=== PATIENT | female | born 1990 | race Caucasian/White ===

== ENCOUNTER 2017-11-28 23:10 | Emergency (ER) | payer OTHER ==
[2017-11-28 23:23] VITALS: BP 127/70
== END 2017-11-29 01:35 ==
LOC: JD.ED 23:10
DX: Z53.21 Procedure and treatment not carried out due to patient leaving prior to being seen by health care provider (principal)

== ENCOUNTER 2018-04-16 11:22 | Emergency (ER) | payer SELFPAY ==
[2018-04-16 11:58] VITALS: BP 134/74
[2018-04-16] MEDS ORDERED: Sodium Chloride 0.9% 10 ML Syringe FLUSH PRN (12:27)
[2018-04-16] MEDS ORDERED: Sodium Chloride 0.9% 1,000 ML IV SCH (12:30)
--- NOTE | 2018-04-16 12:34 | EDM.PDOC ---
ED HPI GENERAL MEDICAL PROBLEM - General Chief Complaint: SUPERVISOR TUBING Problem Stated Complaint: 12 WEEKS PREG AND BLEEDING Time Seen by Provider: 04/16/18 12:02 Source of Information: Reports: Patient, RN Notes Reviewed History Limitations: Reports: No Limitations - History of Present Illness INITIAL COMMENTS - FREE TEXT/NARRATIVE: Patient is a 28 year old female, , who presents to the ED for the evaluation of vaginal bleeding with . She states that when she went to the bathroom this AM, that she noticed some bright red, stringy blood. She is 12 weeks , a patient of Dr. Alexander and has had an ultrasound that showed a single intrauterine . She does state that she has had horrible morning sickness with this that has required IV fluid infusions and also notes that she has had a previous miscarriage. She was worried this morning when she saw the blood. She also states that she is having some mild lower abdominal cramping, but does states that she has not passed any blood clots. She also states that she has been quite constipated and thinks that maybe the cramping is due to that. She denies any dysuria, but does note increased urinary frequency Pelvic Pain Score (Numeric/FACES): 7 - Related Data Allergies Allergy/AdvReac Type Severity Reaction Status Date / Time penicillin Allergy Cannot Verified 04/16/18 11:58 Remember sulfabenzamide Allergy Cannot Verified 04/16/18 11:58 Remember Home Meds: Home Meds Ondansetron [Zofran ODT] 4 mg PO Q6H PRN 04/16/18 [History] PNV No.115/Iron Fumarate/FA [ 19 Chewable Tablet] 1 tab PO DAILY [History] Past Medical History HEENT History: Reports: None Cardiovascular History: Reports: Other (See Below) Other Cardiovascular History: heart palpitations Respiratory History: Reports: Asthma Gastrointestinal History: Reports: None Genitourinary History: Reports: None SUPERVISOR TUBING History: Reports: Other (See Below) Other SUPERVISOR TUBING History: low estrogen levels per pt report Musculoskeletal History: Reports: None Neurological History: Reports: None Psychiatric History: Reports: ADHD Endocrine/Metabolic History: Reports: None Hematologic History: Reports: None Immunologic History: Reports: None Oncologic (Cancer) History: Reports: None Dermatologic History: Reports: None - Infectious Disease History Infectious Disease History: Reports: Chicken Pox - Past Surgical History Head Surgeries/Procedures: Reports: None HEENT Surgical History: Reports: Myringotomy w Tube(s), Tonsillectomy Cardiovascular Surgical History: Reports: None Respiratory Surgical History: Reports: None GI Surgical History: Reports: None Female Surgical History: Reports: None, Breast Implant Endocrine Surgical History: Reports: None Neurological Surgical History: Reports: None Musculoskeletal Surgical History: Reports: None Oncologic Surgical History: Reports: None Dermatological Surgical History: Reports: Plastic Surgical Reconstruction/Repair Social & Family History - Family History Family Medical History: Noncontributory - Tobacco Use Smoking Status *Q: Never Smoker - Caffeine Use Caffeine Use: Reports: None - Recreational Drug Use Recreational Drug Use: No ED ROS GENERAL - Review of Systems Review Of Systems: See Below Constitutional: Reports: No Symptoms HEENT: Reports: No Symptoms Respiratory: Reports: No Symptoms Cardiovascular: Reports: No Symptoms Endocrine: Reports: No Symptoms GI/Abdominal: Reports: No Symptoms : Reports: Frequency, Other (bleeding with urination this AM) Musculoskeletal: Reports: No Symptoms Skin: Reports: No Symptoms Neurological: Reports: No Symptoms Psychiatric: Reports: No Symptoms Hematologic/Lymphatic: Reports: No Symptoms Immunologic: Reports: No Symptoms ED EXAM - Physical Exam Exam: See Below Exam Limited By: No Limitations General Appearance: Alert, WD/WN, No Apparent Distress Eye Exam: Bilateral Eye: Normal Inspection, PERRL Ears: Normal External Exam Nose: Normal Inspection Throat/Mouth: Normal Inspection Respiratory/Chest: No Respiratory Distress, Lungs Clear, Normal Breath Sounds, No Accessory Muscle Use, Chest Non-Tender Cardiovascular: Normal Peripheral Pulses, Regular Rate, Rhythm, No Murmur GI/Abdominal Exam: Normal Bowel Sounds, Soft, Tender (LLQ and suprapubic) (Female) Exam: Other (deferred) Heart Tones: Not [facility] Movement: Not Appreciated Extremities: Normal Inspection, Normal Capillary Refill Neurological: Alert, Oriented, Normal Cognition, No Motor/Sensory Deficits Psychiatric: Normal Affect, Normal Mood Skin Exam: Warm, Dry, Intact, Normal Color, No Rash Course - Vital Signs Last Recorded V/S: Last Vital Signs Temp 99.5 F 04/16/18 11:53 Pulse 83 04/16/18 11:53 Resp 16 04/16/18 11:53 BP 134/74 04/16/18 11:53 Pulse Ox 100 01/26/19 11:53 - Orders/Labs/Meds Orders: Active Orders 24 hr Category Date Time Status Peripheral IV Care [RC] . DIRECTED Care 04/16/18 12:27 Ordered Sodium Chloride 0.9% [Normal Saline] 1,000 ml Med 04/16/18 12:30 Ordered IV ASDIRECTED Sodium Chloride 0.9% [Saline Flush] Med 04/16/18 12:27 Ordered 10 ml FLUSH ASDIRECTED PRN Peripheral IV Insertion Adult [OM.PC] Routine Oth 04/16/18 12:27 Ordered Medication Orders Sodium Chloride (Normal Saline) 1,000 mls @ 999 mls/hr IV ASDIRECTED TEVIN Last Admin: 04/16/18 13:03 Dose: 999 mls/hr Sodium Chloride (Saline Flush) 10 ml FLUSH ASDIRECTED PRN PRN Reason: Keep Vein Open Last Admin: 04/16/18 13:04 Dose: 10 ml Labs: Laboratory Tests 04/16/18 04/16/18 04/16/18 Range/Units 12:05 12:23 12:23 WBC 9.88 (3.98-10.04) K/mm3 RBC 4.38 (3.98-5.22) M/mm3 Hgb 12.6 (11.2-15.7) gm/L Hct 37.6 (34.1-44.9) % MCV 85.8 (79.4-94.8) fl MCH 28.8 (25.6-32.2) pg MCHC 33.5 (32.2-35.5) g/dl RDW Std Deviation 41.7 (36.4-46.3) fL Plt Count 289 (182-369) K/mm3 MPV 9.4 (9.4-12.3) fl Neutrophils % (Manual) 79 H (40-60) % Band Neutrophils % 0 (0-10) % Lymphocytes % (Manual) 18 L (20-40) % Atypical Lymphs % 0 % Monocytes % (Manual) 3 (2-10) % Eosinophils % (Manual) 0 L (0.7-5.8) % Basophils % (Manual) 0 L (0.1-1.2) Platelet Estimate Adequate RBC Morph Comment Normal Sodium (136-145) mEq/L Potassium (3.5-5.1) mEq/L Chloride (98-107) mEq/L Carbon Dioxide (21-32) mEq/L Anion Gap (5-15) BUN (7-18) mg/dL Creatinine (0.55-1.02) mg/dL Est Cr Clr Drug Dosing mL/min Estimated GFR (MDRD) (>60) mL/min BUN/Creatinine Ratio (14-18) Glucose (74-106) mg/dL Calcium (8.5-10.1) mg/dL Total Bilirubin (0.2-1.0) mg/dL AST (15-37) U/L ALT (14-59) U/L Alkaline Phosphatase (46-116) U/L Total Protein (6.4-8.2) g/dl Albumin (3.4-5.0) g/dl Globulin gm/dL Albumin/Globulin Ratio (1-2) HCG, Quant 11335.0 mIU/mL Urine Color Light yellow (Yellow) Urine Appearance Slt cloudy H (Clear) Urine pH 7.0 (5.0-8.0) Ur Specific Omar 1.015 (1.005-1.030) Urine Protein Negative (Negative) Urine Glucose (UA) Negative (Negative) Urine Ketones Negative (Negative) Urine Occult Blood Trace-intact H (Negative) Urine Nitrite Negative (Negative) Urine Bilirubin Negative (Negative) Urine Urobilinogen 0.2 (0.2-1.0) Ur Leukocyte Esterase 2+ H (Negative) Urine RBC 0-5 (0-5) /hpf Urine WBC 5-10 H (0-5) /hpf Ur Epithelial Cells 5-10 H (0-5) /hpf Urine Bacteria Many H (FEW) /hpf Urine Mucus Few (FEW) /hpf 04/16/18 Range/Units 12:23 WBC (3.98-10.04) K/mm3 RBC (3.98-5.22) M/mm3 Hgb (11.2-15.7) gm/L Hct (34.1-44.9) % MCV (79.4-94.8) fl MCH (25.6-32.2) pg MCHC (32.2-35.5) g/dl RDW Std Deviation (36.4-46.3) fL Plt Count (182-369) K/mm3 MPV (9.4-12.3) fl Neutrophils % (Manual) (40-60) % Band Neutrophils % (0-10) % Lymphocytes % (Manual) (20-40) % Atypical Lymphs % % Monocytes % (Manual) (2-10) % Eosinophils % (Manual) (0.7-5.8) % Basophils % (Manual) (0.1-1.2) Platelet Estimate RBC Morph Comment Sodium 138 (136-145) mEq/L Potassium 4.1 (3.5-5.1) mEq/L Chloride 101 (98-107) mEq/L Carbon Dioxide 26 (21-32) mEq/L Anion Gap 15.1 H (5-15) BUN 9 (7-18) mg/dL Creatinine 0.6 (0.55-1.02) mg/dL Est Cr Clr Drug Dosing 122.69 mL/min Estimated GFR (MDRD) > 60 (>60) mL/min BUN/Creatinine Ratio 15.0 (14-18) Glucose 91 (74-106) mg/dL Calcium 9.6 (8.5-10.1) mg/dL Total Bilirubin 0.2 (0.2-1.0) mg/dL AST 17 (15-37) U/L ALT 19 (14-59) U/L Alkaline Phosphatase 45 L (46-116) U/L Total Protein 7.3 (6.4-8.2) g/dl Albumin 3.5 (3.4-5.0) g/dl Globulin 3.8 gm/dL Albumin/Globulin Ratio 0.9 L (1-2) HCG, Quant mIU/mL Urine Color (Yellow) Urine Appearance (Clear) Urine pH (5.0-8.0) Ur Specific Omar (1.005-1.030) Urine Protein (Negative) Urine Glucose (UA) (Negative) Urine Ketones (Negative) Urine Occult Blood (Negative) Urine Nitrite (Negative) Urine Bilirubin (Negative) Urine Urobilinogen (0.2-1.0) Ur Leukocyte Esterase (Negative) Urine RBC (0-5) /hpf Urine WBC (0-5) /hpf Ur Epithelial Cells (0-5) /hpf Urine Bacteria (FEW) /hpf Urine Mucus (FEW) /hpf Meds: Medications Generic Name Dose Route Start Last Admin Trade Name Freq PRN Reason Stop Dose Admin Sodium Chloride 1,000 mls @ 999 mls/hr 04/16/18 12:30 04/16/18 13:03 Normal Saline IV 999 mls/hr ASDIRECTED TEVIN Administration Sodium Chloride 10 ml 04/16/18 12:27 04/16/18 13:04 Saline Flush FLUSH 10 ml ASDIRECTED PRN Administration Keep Vein Open Discontinued Medications Generic Name Dose Route Start Last Admin Trade Name Freq PRN Reason Stop Dose Admin Ondansetron HCl 4 mg 04/16/18 14:43 04/16/18 14:49 Zofran IVPUSH 04/16/18 14:44 4 mg ONETIME ONE Administration - Radiology Interpretation Free Text/Narrative:: First trimester obstetrical ultrasound: Multiple real-time images were obtained transabdominally. Comparison: No previous obstetrical ultrasound for current is available. Dates: Current ultrasound: [facility] 11/01/18, gestational age 11 weeks 4 days Single intrauterine gestation is seen. Amniotic fluid time is normal. Embryo is identified. No subchorionic hemorrhage is seen. Maternal ovaries appear within normal limits. Measurements: [place]-rump length: 4.77 cm - 11 weeks 4 days Heart rate: 176 BPM Impression: 1. Single intrauterine gestation. Dates as noted above. 2. No complicating process is seen by ultrasound at this time. - Re-Assessments/Exams Free Text/Narrative Re-Assessment/Exam: 04/16/18 12:38 Pt presents to the ED for the evaluation of bleeding with urination this AM. I have ordered an IV bolus of NS due to her morning sickness, CBC, CMP, HCG quant , UA, and possible transvaginal US if the UA is negative. 04/16/18 13:38 UA is not entirely impressive for any infection, will go ahead with the US at this time. Her labs did in fact show that she was dry, and her HCG quant is at an appropriate level. 04/16/18 14:55 Pt was feeling nauseated, did order 4mg IV zofran, and her bag of fluids are complete. US shows a single intrauterine fetus with heart rate of 176bpm. Pt was reassured at this news. She will be discharged home and told to take it easy over the course of the weekend. Departure - Departure Time of Disposition: 14:57 Disposition: Home, Self-Care 01 Clinical Impression: Bleeding in early - Discharge Information *PRESCRIPTION DRUG MONITORING PROGRAM REVIEWED*: No *COPY OF PRESCRIPTION DRUG MONITORING REPORT IN PATIENT LIZ: No Referrals: Kerline Taylor MD [Primary Care Provider] - Forms: ED Department Discharge Additional Instructions: You have been evaluated in the ED for bleeding with . Your labs show that your is progressing well. Your US showed that your baby is alive and well. Please take it easy this weekend, get as much rest as possible. Follow up with your OB this next week if you are still having increased urinary frequency or painful urination, as your UA did not demonstrate any active infection today. Please return to the ED if your symptoms should change or worsen. - My Orders Last 24 Hours: My Active Orders 04/16/18 12:27 Peripheral IV Care [RC] . DIRECTED Sodium Chloride 0.9% [Saline Flush] 10 ml FLUSH ASDIRECTED PRN Peripheral IV Insertion Adult [OM.PC] Routine 04/16/18 12:30 Sodium Chloride 0.9% [Normal Saline] 1,000 ml IV ASDIRECTED - Assessment/Plan Last 24 Hours: My Active Orders 04/16/18 12:27 Peripheral IV Care [RC] . DIRECTED Sodium Chloride 0.9% [Saline Flush] 10 ml FLUSH ASDIRECTED PRN Peripheral IV Insertion Adult [OM.PC] Routine 04/16/18 12:30 Sodium Chloride 0.9% [Normal Saline] 1,000 ml IV ASDIRECTED
--- NOTE | 2018-04-16 14:20 | US ---
First trimester obstetrical ultrasound: Multiple real-time images were obtained transabdominally. Comparison: No previous obstetrical ultrasound for current is available. Dates: Current ultrasound: [facility] 11/01/18, gestational age 11 weeks 4 days Single intrauterine gestation is seen. Amniotic fluid time is normal. Embryo is identified. No subchorionic hemorrhage is seen. Maternal ovaries appear within normal limits. Measurements: [place]-rump length: 4.77 cm - 11 weeks 4 days Heart rate: 176 BPM Impression: 1. Single intrauterine gestation. Dates as noted above. 2. No complicating process is seen by ultrasound at this time. Diagnostic code #1
[2018-04-16] MEDS ORDERED: Ondansetron 4 MG/2 ML SDV IVPUSH ONE (14:43)
== END 2018-04-16 15:12 | disposition home or self-care (01) ==
LOC: JD.ED 11:22
DX: O20.9 Hemorrhage in early pregnancy, unspecified (principal); Z96.22 Myringotomy tube(s) status; Z98.890 Other specified postprocedural states; Z88.0 Allergy status to penicillin; Z88.2 Allergy status to sulfonamides; Z3A.11 11 weeks gestation of pregnancy
CPT/HCPCS: 36415; 76801; 80053; 81001; 84702; 85007; 85027; 96361; 96374; 99284; J2405; J7040; 99283

== ENCOUNTER 2018-07-05 17:48 | Emergency (ER) | payer OTHER ==
[2018-07-05 18:21] VITALS: BP 140/94
[2018-07-05] MEDS ORDERED: Sodium Chloride 0.9% 10 ML Syringe FLUSH PRN (18:33)
[2018-07-05] MEDS ORDERED: Sodium Chloride 0.9% 1,000 ML IV SCH (18:45)
--- NOTE | 2018-07-05 19:03 | EDM.PDOC ---
ED HPI GENERAL MEDICAL PROBLEM - General Chief Complaint: Gastrointestinal Problem Stated Complaint: DIARRHEA Time Seen by Provider: 07/05/18 18:10 Source of Information: Reports: Patient, RN Notes Reviewed History Limitations: Reports: No Limitations - History of Present Illness INITIAL COMMENTS - FREE TEXT/NARRATIVE: Patient is a 28-year-old female who is 24 weeks who presents to the ED for the evaluation of diarrhea. She states that the diarrhea has been present for around 3 days now. She notes that she is seeing some blood with her diarrhea. She states she is able to tolerate oral fluids and foods, however when she eats it just goes straight through her. She notes some right-sided cramps, she did take 2 aspirins for this. She states she has some mild nausea, sweats that coming go in waves. She is not had any lightheadedness or dizziness at this time. She does not note eating any questionable foods, nor did she start any medications or supplements. She did take 1 dose of Imodium on the first day, she states that this did not provide much relief from the diarrhea however. She denies any chest pain/shortness of breath. She further notes feelings of being flush. Right Lower Abdomen Pain Score (Numeric/FACES): 8 - Related Data Allergies Allergy/AdvReac Type Severity Reaction Status Date / Time penicillin Allergy Cannot Verified 07/05/18 18:21 Remember sulfabenzamide Allergy Cannot Verified 07/05/18 18:21 Remember Home Meds: Home Meds Ondansetron [Zofran ODT] 4 mg PO Q6H PRN 04/16/18 [History] PNV No.115/Iron Fumarate/FA [ 19 Chewable Tablet] 1 tab PO DAILY [History] Past Medical History HEENT History: Reports: None Cardiovascular History: Reports: Other (See Below) Other Cardiovascular History: heart palpitations Respiratory History: Reports: Asthma Gastrointestinal History: Reports: None Genitourinary History: Reports: None MICRO PALEONTOLOGIST History: Reports: , Other (See Below) Other MICRO PALEONTOLOGIST History: low estrogen levels per pt report Musculoskeletal History: Reports: None Neurological History: Reports: None Psychiatric History: Reports: ADHD, Suicidal Ideation Endocrine/Metabolic History: Reports: None Hematologic History: Reports: None Immunologic History: Reports: None Oncologic (Cancer) History: Reports: None Dermatologic History: Reports: None - Infectious Disease History Infectious Disease History: Reports: Chicken Pox - Past Surgical History Head Surgeries/Procedures: Reports: None HEENT Surgical History: Reports: Myringotomy w Tube(s), Tonsillectomy Cardiovascular Surgical History: Reports: None Female Surgical History: Reports: Breast Implant Oncologic Surgical History: Reports: None Dermatological Surgical History: Reports: Plastic Surgical Reconstruction/Repair Social & Family History - Family History Family Medical History: Noncontributory - Tobacco Use Smoking Status *Q: Never Smoker - Caffeine Use Caffeine Use: Reports: None ED ROS GENERAL - Review of Systems Review Of Systems: See Below Constitutional: Denies: Fever, Chills, Weight Loss HEENT: Reports: No Symptoms Respiratory: Reports: No Symptoms Cardiovascular: Reports: No Symptoms Endocrine: Reports: No Symptoms GI/Abdominal: Reports: Abdominal Pain (Right sided flank/quadrant), Diarrhea, Nausea. Denies: Constipation, Vomiting : Reports: No Symptoms Musculoskeletal: Reports: No Symptoms Skin: Reports: No Symptoms Neurological: Reports: No Symptoms Psychiatric: Reports: No Symptoms Hematologic/Lymphatic: Reports: No Symptoms Immunologic: Reports: No Symptoms ED EXAM, GI/ABD - Physical Exam Exam: See Below Exam Limited By: No Limitations General Appearance: Alert, WD/WN, No Apparent Distress Eyes: Bilateral: Normal Appearance Ears: Normal External Exam Nose: Normal Inspection Throat/Mouth: Normal Inspection, Normal Oropharynx, No Airway Compromise Head: Atraumatic, Normocephalic Neck: Normal Inspection Respiratory/Chest: No Respiratory Distress, Lungs Clear, Normal Breath Sounds, No Accessory Muscle Use, Chest Non-Tender Cardiovascular: Normal Peripheral Pulses, Regular Rate, Rhythm, No Murmur GI/Abdominal Exam: Normal Bowel Sounds, Soft, Non-Tender, No Distention, No Mass , Other (Gravid appearing abdomen) Back Exam: Normal Inspection, Full Range of Motion Extremities: Normal Inspection, Normal Capillary Refill Neurological: Alert, Oriented, Normal Cognition, No Motor/Sensory Deficits Psychiatric: Normal Affect, Normal Mood Skin Exam: Warm, Dry, Intact, Normal Color, No Rash Course - Vital Signs Last Recorded V/S: Last Vital Signs Temp 97.8 F 07/05/18 18:18 Pulse 103 H 07/05/18 18:18 Resp 18 07/05/18 18:18 BP 140/94 H 07/05/18 18:18 Pulse Ox 100 07/05/18 18:18 - Orders/Labs/Meds Orders: Active Orders 24 hr Category Date Time Status Peripheral IV Care [RC] . DIRECTED Care 07/05/18 18:34 Active Retroperitoneal Comp [US] Stat Exams 07/05/18 19:52 Taken Peripheral IV Insertion Adult [OM.PC] Routine Oth 07/05/18 18:33 Ordered Labs: Laboratory Tests 07/05/18 07/05/18 07/05/18 Range/Units 18:36 18:47 18:47 WBC 13.51 H (3.98-10.04) K/mm3 RBC 3.80 L (3.98-5.22) M/mm3 Hgb 11.3 (11.2-15.7) gm/L Hct 34.0 L (34.1-44.9) % MCV 89.5 (79.4-94.8) fl MCH 29.7 (25.6-32.2) pg MCHC 33.2 (32.2-35.5) g/dl RDW Std Deviation 46.8 H (36.4-46.3) fL Plt Count 230 (182-369) K/mm3 MPV 10.3 (9.4-12.3) fl Neutrophils % (Manual) 78 H (40-60) % Band Neutrophils % 0 (0-10) % Lymphocytes % (Manual) 17 L (20-40) % Atypical Lymphs % 0 % Monocytes % (Manual) 5 (2-10) % Eosinophils % (Manual) 0 L (0.7-5.8) % Basophils % (Manual) 0 L (0.1-1.2) Platelet Estimate Adequate RBC Morph Comment Normal Sodium 137 (136-145) mEq/L Potassium 3.3 L (3.5-5.1) mEq/L Chloride 104 (98-107) mEq/L Carbon Dioxide 25 (21-32) mEq/L Anion Gap 11.3 (5-15) BUN 8 (7-18) mg/dL Creatinine 0.6 (0.55-1.02) mg/dL Est Cr Clr Drug Dosing 127.85 mL/min Estimated GFR (MDRD) > 60 (>60) mL/min BUN/Creatinine Ratio 13.3 L (14-18) Glucose 76 (74-106) mg/dL Calcium 9.1 (8.5-10.1) mg/dL Total Bilirubin 0.2 (0.2-1.0) mg/dL AST 22 (15-37) U/L ALT 22 (14-59) U/L Alkaline Phosphatase 58 (46-116) U/L C-Reactive Protein (<1.0) mg/dL Total Protein 6.7 (6.4-8.2) g/dl Albumin 3.1 L (3.4-5.0) g/dl Globulin 3.6 gm/dL Albumin/Globulin Ratio 0.9 L (1-2) Urine Color Straw (Yellow) Urine Appearance Clear (Clear) Urine pH 7.0 (5.0-8.0) Ur Specific Glover 1.015 (1.005-1.030) Urine Protein Negative (Negative) Urine Glucose (UA) Negative (Negative) Urine Ketones Negative (Negative) Urine Occult Blood 3+ H (Negative) Urine Nitrite Negative (Negative) Urine Bilirubin Negative (Negative) Urine Urobilinogen 0.2 (0.2-1.0) Ur Leukocyte Esterase Negative (Negative) Urine RBC 30-40 H (0-5) /hpf Urine WBC 0-5 (0-5) /hpf Ur Squamous Epith Cells 0-5 (0-5) /hpf Urine Bacteria Not seen (FEW) /hpf Urine Mucus Not seen (FEW) /hpf 07/05/18 Range/Units 18:47 WBC (3.98-10.04) K/mm3 RBC (3.98-5.22) M/mm3 Hgb (11.2-15.7) gm/L Hct (34.1-44.9) % MCV (79.4-94.8) fl MCH (25.6-32.2) pg MCHC (32.2-35.5) g/dl RDW Std Deviation (36.4-46.3) fL Plt Count (182-369) K/mm3 MPV (9.4-12.3) fl Neutrophils % (Manual) (40-60) % Band Neutrophils % (0-10) % Lymphocytes % (Manual) (20-40) % Atypical Lymphs % % Monocytes % (Manual) (2-10) % Eosinophils % (Manual) (0.7-5.8) % Basophils % (Manual) (0.1-1.2) Platelet Estimate RBC Morph Comment Sodium (136-145) mEq/L Potassium (3.5-5.1) mEq/L Chloride (98-107) mEq/L Carbon Dioxide (21-32) mEq/L Anion Gap (5-15) BUN (7-18) mg/dL Creatinine (0.55-1.02) mg/dL Est Cr Clr Drug Dosing mL/min Estimated GFR (MDRD) (>60) mL/min BUN/Creatinine Ratio (14-18) Glucose (74-106) mg/dL Calcium (8.5-10.1) mg/dL Total Bilirubin (0.2-1.0) mg/dL AST (15-37) U/L ALT (14-59) U/L Alkaline Phosphatase (46-116) U/L C-Reactive Protein < 0.2 (<1.0) mg/dL Total Protein (6.4-8.2) g/dl Albumin (3.4-5.0) g/dl Globulin gm/dL Albumin/Globulin Ratio (1-2) Urine Color (Yellow) Urine Appearance (Clear) Urine pH (5.0-8.0) Ur Specific Glover (1.005-1.030) Urine Protein (Negative) Urine Glucose (UA) (Negative) Urine Ketones (Negative) Urine Occult Blood (Negative) Urine Nitrite (Negative) Urine Bilirubin (Negative) Urine Urobilinogen (0.2-1.0) Ur Leukocyte Esterase (Negative) Urine RBC (0-5) /hpf Urine WBC (0-5) /hpf Ur Squamous Epith Cells (0-5) /hpf Urine Bacteria (FEW) /hpf Urine Mucus (FEW) /hpf Meds: Medications Discontinued Medications Generic Name Dose Route Start Last Admin Trade Name Freq PRN Reason Stop Dose Admin Sodium Chloride 1,000 mls @ 500 mls/hr 07/05/18 18:45 07/05/18 19:03 Normal Saline IV 500 mls/hr ASDIRECTED TEVIN Administration Sodium Chloride 10 ml 07/05/18 18:33 07/05/18 19:03 Saline Flush FLUSH 10 ml ASDIRECTED PRN Administration Keep Vein Open - Re-Assessments/Exams Free Text/Narrative Re-Assessment/Exam: 07/05/18 19:05 Patient presents to the ED for the evaluation of diarrhea. I did order an IV bolus of fluids, CBC, CMP and a UA for further evaluation. I will have her collect a stool sample if she feels the need to go in the ED and send this for culture. 07/05/18 19:53 Patient's labs have returned and demonstrated slightly elevated white count at 13,000 no bands, her UA is remarkable for 3+ occult blood and 40-50 red blood cells. I have ordered a retroperitoneal ultrasound for further evaluation of a possible kidney stone, and have ordered a wet prep for evaluation of possible BV as the patient divulged that she thought there was some foul-smelling discharge. 07/05/18 20:31 Patient's CRP is back and is not elevated at this time, which is less likely consistent with a diagnosis of appendicitis. metallurgical technician is obtaining the retroperitoneal ultrasound at this time. 07/05/18 20:52 The special procedure technologist states that she has some hydronephrosis on the right side, this would be consistent with the possibility of a kidney stone. I will give the patient general recommendations regarding her diarrhea and kidney stone at this time. Departure - Departure Time of Disposition: 20:59 Disposition: Home, Self-Care 01 Condition: Fair Clinical Impression: Diarrhea, Kidney stone - Discharge Information *PRESCRIPTION DRUG MONITORING PROGRAM REVIEWED*: No *COPY OF PRESCRIPTION DRUG MONITORING REPORT IN PATIENT LIZ: No Instructions: Kidney Stones, [id number], Food Choices to Help Relieve Diarrhea, Adult, Diarrhea, Adult, [id number] Referrals: Kerline Taylor MD [Primary Care Provider] - Forms: ED Department Discharge Additional Instructions: You have been evaluated in the ED for diarrhea. It is likely that this is caused from a viral gastroenteritis. Your urinalysis was suspicious for a kidney stone, your ultrasound of your right kidney did demonstrate some hydronephrosis which also is consistent with a kidney stone. Please take 500 mg Tylenol every 6 hours as needed for pain relief. Do not exceed 4000 mg of Tylenol in a 24-hour time span. You have received IV fluid in the ED to help with the dehydration from the diarrhea. Over the next 24-48 hours please try to limit diet to clear liquids or bland diet to alleviate symptoms of nausea/diarrhea. Please return to the ED if your symptoms should change or worsen. - My Orders Last 24 Hours: My Active Orders 07/05/18 18:33 Peripheral IV Insertion Adult [OM.PC] Routine 07/05/18 18:34 Peripheral IV Care [RC] . DIRECTED 07/05/18 19:52 Retroperitoneal Comp [US] Stat - Assessment/Plan Last 24 Hours: My Active Orders 07/05/18 18:33 Peripheral IV Insertion Adult [OM.PC] Routine 07/05/18 18:34 Peripheral IV Care [RC] . DIRECTED 07/05/18 19:52 Retroperitoneal Comp [US] Stat
--- NOTE | 2018-07-06 06:42 | US ---
Renal ultrasound: Multiple real-time images of the kidneys were obtained. Comparison: Prior CT abdomen and pelvis exam of 02/11/18. Right-sided hydronephrosis is seen. Right ureteral jet is seen within the bladder. Left kidney shows no hydronephrosis. Left ureteral jet is seen within the bladder. Resistivity indices are normal within both kidneys. No shadowing calculi are seen. No cortical abnormalities are seen. Measurements: Right kidney length: 11.6 cm Left kidney length: 10.9 cm. Impression: 1. Mild to moderate right-sided hydronephrosis. Right ureteral jet is seen which rules out complete ureteral obstruction. Uncertain how much of the hydronephrosis represents hydronephrosis of or represents other etiology of ureteral obstruction. 2. Renal ultrasound is otherwise unremarkable. Diagnostic code #3 I agree with preliminary report from [facility], finalized on 07/05/18, 10:43 PM Central Time
== END 2018-07-05 21:15 | disposition home or self-care (01) ==
LOC: JD.ED 17:48
DX: O99.89 Other specified diseases and conditions complicating pregnancy, childbirth and the puerperium (principal); R19.7 Diarrhea, unspecified; N13.30 Unspecified hydronephrosis; Z3A.24 24 weeks gestation of pregnancy; Z88.0 Allergy status to penicillin; Z88.2 Allergy status to sulfonamides
CPT/HCPCS: 36415; 76770; 80053; 81001; 85007; 85027; 86140; 87210; 87808; 96360; 96361; 99284; J7040; 99283

== ENCOUNTER 2018-08-20 10:04 | Observation (INO) | payer OTHER ==
[2018-08-20] MEDS ORDERED: Sodium Chloride 0.9% 10 ML Syringe FLUSH PRN (11:33)
[2018-08-20] MEDS ORDERED: Sodium Chloride 0.9% 1,000 ML IV ONE (11:33)
[2018-08-20] MEDS ORDERED: Diphenhydramine/Lidocaine/MagAl/Simethicone 119 ML Bottle PO PRN (11:35)
[2018-08-20] MEDS ORDERED: Lactated Ringers 1,000 ML IV SCH (11:45)
[2018-08-20] MEDS: Ondansetron 4 MG/2 ML SDV IVPUSH PRN ×3 (12:02→21:23)
[2018-08-20] MEDS: HYDROmorphone 0.5 MG/0.5 ML Syringe IVPUSH PRN ×4 (12:13→23:22)
[2018-08-20] MEDS ORDERED: ePHEDrine 50 MG/ML SDV IVPUSH PRN (12:31)
[2018-08-20] MEDS ORDERED: diphenhydrAMINE 50 MG/ML SDV IVPUSH PRN (12:31)
[2018-08-20] MEDS ORDERED: fentaNYL 100 MCG/2 ML SDV EPIDUR PRN (12:31)
[2018-08-20] MEDS ORDERED: Bupivacaine/fentaNYL/NS 100 ML Bag EPIDUR SCH (12:45)
[2018-08-20] MEDS: Acetaminophen/oxyCODONE 325-5 MG Tab PO PRN (13:24)
--- NOTE | 2018-08-20 15:18 | PCM.LDHP ---
L&D History of Present Illness - General Date of Service: 08/20/18 Admit Problem/Dx: Patient Status Order with Admit Dx/Problem 08/20/18 10:37 Patient Status [ADT] Routine Admission Diagnosis/Problem Admission Diagnosis/Problem 08/20/18 15:01 Kassie is a 28-year-old 2 para 0010 white female who is seen in outpatient labor and delivery for complaints of oral ulcers/lesions that are very painful to the degree where she is not able to eat or drink anything for the last 2-4 days. She has had an evaluation in the [facility] department on at which time is felt to be a viral infection and for which she was sent home with conservative therapy such as throat lozenges and over-the- counter oral rinses. She is here today because she feels she is getting dehydrated end of pain is very severe. She is not able to swallow without significant discomfort. Baby has been active and she reports no problems specifically her directly with the . ROTARY ADJUSTER history: Patient is seen relatively early in the on 03/24/2018 at 7-4/7 weeks. Her ARSEN is set at 11/06/2018 based upon ultrasound done on 2018. She's had another ultrasound since that time on 04/16/2018 which essentially correlated with her first ultrasound. Her weight gain has been from 160-169 pounds. Laboratory testing and shows blood to be O+ with negative ice cream. Hemoglobin first visit was 12.5 g/dL. Platelets 272,000. Rubella titer shows immunity. RPR is nonreactive hepatitis B surface antigen and hepatitis C were both nonreactive. Chlamydia and gonorrhea were both negative. She did have some abnormalities on her Pap smear at that time. These are not in her record. Second trimester hemoglobin was 12.7 and platelets are 255,000. Her TSH was 0.85 Michel instrument milliliter at first visit. Group B strep screen has not been done. She has not had her 1 hour GTT at this time yet. Allergies: penicillin and sulfabenzamide Medications: 1. vitamins 2. Albuterol inhaler when necessary 3. Phenergan 25 mg tablets by mouth every 6 hours when necessary for nausea 4. Zofran 8 mg dispersal tablets every 8 hours when necessary for nausea 5. Bactroban 2% ointment topically 3 times per day Past medical history: 1. Anxiety 2. Mood disorder 3. ADHD 4. History of alcohol abuse 5. Miscarriage times 21 January 2016 Past surgical history: 1. Augmentation mammoplasty 2. Tonsillectomy and adenoidectomy at age 14 3. Tympanostomy tube placement left side as a child Family history: Father with type 2 diabetes, anxiety disorder, ADHD, depression , hypertension and mother with history of drug abuse. Sr. with history of anemia. Brother with history of Crohn's disease. Brother with ADHD. Maternal grandmother with endometriosis history and diabetes type 2 history. Maternal grandfather with type 2 diabetes history. Paternal grandmother and paternal grandfather with type 2 diabetes. One cousin with Down syndrome. Social history: Patient is single, is in a stable relationship with her boyfriend. She used to smoke cigarettes but does not smoke at this time of the . She has stopped using alcohol during the . She lives in [place], [place]. She does not smoke. Review of systems: Patient's only real concern is the severe discomfort associated with her oral lesions, also some swelling in her neck which she attributes to lymph node swelling related to her oral lesions. She reports baby has been active and she has no other symptoms directly related to the . HEENT, neck and back:26-year-old 4 para 2012 white female admitted for active labor and spontaneous rupture membranes. Patient's complaints of sores in her mouth and at the left end of the angle of her mouth at the vermilion border. This trouble swallowing because of pain extending down her throat. She also has report of swelling in her neck which she relates to the sores. Skin: Negative Lungs: No infectious symptoms or shortness of breath Cardiovascular: No chest pain or exercise intolerance Breasts: Changes associated . GI: Negative : changes Musculoskeletal: Negative Neurological: Negative In general the patient is well-developed, well-nourished, pleasant female of stated age in no acute distress. Skin is warm dry without lesions. Physical exam: In general patient is a well-developed, well-nourished, pleasant female appears to be in moderate distress secondary to mouth and throat lesions. She has a hard time swallowing. She is speaking without problems and has no apparent signs of breathing problems. Vital signs stable. Patient is afebrile. HEENT, neck and back: Patient has an umbilicated-appearing lesion at the left angle of her mouth at the vermilion border. She has between 20 and 30 lesions within her oral cavity with a high concentration of them underneath her tongue on the left side. Most appeared to be consistent with aphthous stomatitis. There does not appear to be any pus pockets on the throat epithelium. She has what appears to be swelling and discomfort with palpation of her mandibular and cervical chain lymph nodes. Lungs are clear with good breath sounds in all lung smith. Cardiovascular exam shows regular and rhythm without murmurs. Breast exam is deferred. Abdomen is protuberant with fundal height consistent with dates. Genital exam is not performed as she is not having any symptoms referable to this area. Extremities and neurological exam are grossly within normal limits. - History of Present Illness Pain Score: 8 - Related Data Allergies/Adverse Reactions: Allergies Allergy/AdvReac Type Severity Reaction Status Date / Time penicillin Allergy Cannot Verified 08/18/18 20:29 CDT Remember sulfabenzamide Allergy Cannot Verified 08/18/18 20:29 CDT Remember Home Medications: Home Meds Ondansetron [Zofran ODT] 4 mg PO Q6H PRN 04/16/18 [History] PNV No.115/Iron Fumarate/FA [ 19 Chewable Tablet] 1 tab PO DAILY [History] Past Medical History HEENT History: Reports: None Cardiovascular History: Reports: Other (See Below) Other Cardiovascular History: heart palpitations Respiratory History: Reports: Asthma Gastrointestinal History: Reports: None Genitourinary History: Reports: None ROTARY ADJUSTER History: Reports: , Other (See Below) Other OB/BYN History: low estrogen levels per pt report Musculoskeletal History: Reports: None Neurological History: Reports: None Psychiatric History: Reports: ADHD, Suicidal Ideation Endocrine/Metabolic History: Reports: None Hematologic History: Reports: None Immunologic History: Reports: None Oncologic (Cancer) History: Reports: None Dermatologic History: Reports: None - Infectious Disease History Infectious Disease History: Reports: Chicken Pox - Past Surgical History Head Surgeries/Procedures: Reports: None HEENT Surgical History: Reports: Myringotomy w Tube(s), Tonsillectomy Cardiovascular Surgical History: Reports: None Female Surgical History: Reports: Breast Implant Oncologic Surgical History: Reports: None Dermatological Surgical History: Reports: Plastic Surgical Reconstruction/Repair Social & Family History - Family History Family Medical History: Noncontributory - Caffeine Use Caffeine Use: Reports: Soda H&P Review of Systems - Review of Systems: Review Of Systems: See Below L&D Exam - Exam Exam: See Below - Vital Signs Vital Signs: Last Vital Signs Temp 37.1 C 08/20/18 10:37 Pulse 63 08/20/18 10:37 Resp 16 08/20/18 10:37 BP 115/65 08/20/18 10:37 Pulse Ox Weight: 75.296 kg - Patient Data Lab Results Last 24 hrs: Laboratory Results - last 24 hr 08/20/18 Range/Units 12:05 Sodium 139 (136-145) mEq/L Potassium 3.9 (3.5-5.1) mEq/L Chloride 106 (98-107) mEq/L Carbon Dioxide 22 (21-32) mEq/L Anion Gap 14.9 (5-15) BUN 10 (7-18) mg/dL Creatinine 0.6 (0.55-1.02) mg/dL Est Cr Clr Drug Dosing 122.69 mL/min Estimated GFR (MDRD) > 60 (>60) mL/min BUN/Creatinine Ratio 16.7 (14-18) Glucose 71 L (74-106) mg/dL Calcium 8.1 L (8.5-10.1) mg/dL Result Diagrams: 08/20/18 12:05 Problem List Initiated/Reviewed/Updated: Yes Orders Last 24hrs: Active Orders 24 hr Category Date Time Status Patient Status [ADT] Routine ADT 08/20/18 10:37 Active Ambulate [RC] PER UNIT ROUTINE Care 08/20/18 11:40 Active Communication Order [RC] ASDIRECTED Care 08/20/18 12:31 Active Cooling Warming Measures [RC] ASDIRECTED Care 08/20/18 12:30 Active Non Stress Test [RC] PER UNIT ROUTINE Care 08/20/18 10:37 Active Non Stress Test [RC] PER UNIT ROUTINE Care 08/20/18 11:39 Active Notify Provider [RC] ASDIRECTED Care 08/20/18 12:31 Active Peripheral IV Care [RC] . DIRECTED Care 08/20/18 11:33 Active Pulse Oximetry [RC] ASDIRECTED Care 08/20/18 12:30 Active Vital Signs [RC] PER UNIT ROUTINE Care 08/20/18 10:37 Active Regular Diet [DIET] Diet 08/20/18 Lunch Active RAPID PLASMA REAGIN,RPR [CHEM] Routine Lab 08/20/18 14:36 Ordered Acetaminophen/oxyCODONE [Percocet 325-5 MG] Med 08/20/18 11:39 Active 2 tab PO Q4H PRN Bupivacaine/fentaNYL/NS [fentaNYL/Bupivacaine/NS 2 MCG- Med 08/20/18 12:45 Active 0.125% 100 ML] 100 ml EPIDUR ASDIRECTED Diphenhyd/Lidocaine/MagAl/Avinash [First-Mouthwash BLM Med 08/20/18 11:35 Active Susp] 30 ml PO ASDIRECTED PRN HYDROmorphone [Dilaudid] Med 08/20/18 11:32 Active 0.5 mg IVPUSH Q2H PRN Lactated Ringers [Ringers, Lactated] 1,000 ml Med 08/20/18 11:45 Active IV ASDIRECTED Ondansetron [Zofran] Med 08/20/18 11:39 Active 4 mg IVPUSH Q4H PRN Sodium Chloride 0.9% [Saline Flush] Med 08/20/18 11:33 Active 10 ml FLUSH ASDIRECTED PRN diphenhydrAMINE [Benadryl] Med 08/20/18 12:31 Active 25 mg IVPUSH Q6H PRN ePHEDrine [ePHEDrine sulfate] Med 08/20/18 12:31 Active 5 mg IVPUSH ASDIRECTED PRN fentaNYL [Sublimaze] Med 08/20/18 12:31 Active 100 mcg EPIDUR Q3H PRN Peripheral IV Insertion Adult [OM.PC] Routine Oth 08/20/18 11:32 Ordered Resuscitation Status Routine Resus Stat 08/20/18 10:37 Ordered Medication Orders Diphenhydr/Magaldrate/Simeth/Lidoca (First-Mouthwash Blm Susp) 30 ml PO ASDIRECTED PRN PRN Reason: Pain (moderate 4-6) Last Admin: 08/20/18 11:58 Dose: 30 ml Diphenhydramine HCl (Benadryl) 25 mg IVPUSH Q6H PRN PRN Reason: Itching Ephedrine Sulfate (Ephedrine Sulfate) 5 mg IVPUSH ASDIRECTED PRN PRN Reason: HYPOTENTSION Fentanyl (Sublimaze) 100 mcg EPIDUR Q3H PRN PRN Reason: Pain Fentanyl/Bupivacaine HCl (Fentanyl/Bupivacaine/Ns 2 Mcg-0.125% 100 Ml) 100 ml EPIDUR ASDIRECTED TEVIN Hydromorphone HCl (Dilaudid) 0.5 mg IVPUSH Q2H PRN PRN Reason: Pain Last Admin: 08/20/18 12:13 Dose: 0.5 mg Lactated Ringer's (Ringers, Lactated) 1,000 mls @ 250 mls/hr IV ASDIRECTED TEVIN Last Admin: 08/20/18 13:06 Dose: 250 mls/hr Ondansetron HCl (Zofran) 4 mg IVPUSH Q4H PRN PRN Reason: Nausea Last Admin: 08/20/18 12:02 Dose: 4 mg Oxycodone/Acetaminophen (Percocet 325-5 Mg) 2 tab PO Q4H PRN PRN Reason: Pain Last Admin: 08/20/18 13:24 Dose: 2 tab Sodium Chloride (Saline Flush) 10 ml FLUSH ASDIRECTED PRN PRN Reason: Keep Vein Open Assessment/Plan Comment:: 1. Oral lesions-causing moderate discomfortA patient is not able to swallow her keep fluids down. She is appearing mildly dehydrated at this time. 2. at 28 weeks gestational age with an ARSEN of 11/06/2018 by ultrasound on her 3. Reassuring heart tones, no evidence of contractions. Regnancy itself appears to be progressing well 4. Reported MRSA positive status 5. Uncertain exposure to STI'smother recently diagnosed with Trichomonas infection 6. RPR early in was negative. One today is pending. 7. Rubella immune. 8. History of tonsillectomy, adenoidectomy as a child. Plan: 1. Fluid rehydration with 1 L of normal saline and then D5 LR to follow at a rate of 250 mL an hour and well hydrated. 2. Initial treatment pain with Dilaudid 0.5 mg IV every 2 hours when necessary for pain 3. When possible will switch to Percocet 1-2 tabs every 4 hours when necessary for pain 4. Hydroxyzine when necessary for pain nodularity and for anxiety of her discomfort. 5. Oral swish and swallow therapy which will contain 2% lidocaine to be used on a when necessary basis. 6. If no significant improvement noted will consult hospitalist/ARSEN provider for their opinion. 7. Diet as tolerated with fluids most important.
[2018-08-20] MEDS: Acyclovir 200 MG Cap PO SCH ×2 (17:04→21:26)
[2018-08-20] MEDS: Dextrose 5%-Lactated Ringers 1,000 ML IV SCH (18:09)
[2018-08-20] MEDS ORDERED: Lidocaine 2% Viscous Solution 15 ML Cup PO PRN (20:52)
[2018-08-20] MEDS: Aluminum Hydroxide/Magnesium Hydroxide/Simethicone Susp 30 ML Cup PO PRN ×2 (22:03→23:55)
[2018-08-20] MEDS: Lidocaine 2% Viscous Solution 15 ML Cup MUCMEM PRN (22:04)
[2018-08-21] MEDS: hydrOXYzine HCl 50 MG Tab PO PRN ×2 (00:05→10:53)
--- NOTE | 2018-08-21 00:41 | PCM.SN ---
- Free Text/Narrative Note: I was asked to evaluate the patient on the floor by nursing staff. Dr. Alcantar OB /LOSS PREVENTION ANALYST initially consulted the on-call hospitalist to evaluate the patient. The hospitalist on-call refused. Patient is a 28-year-old female who is recently admitted to the hospital by Dr. Alcantar for multiple painful ulcers to her oromucosa that started approximately 4 days ago. Patient states she noticed the first lesion to the right lower gumline. She popped it with a dental pick and thereafter the lesions have spread. Outer border of the lesion have been erythematous with yellowish inflamed tissue centrally. There has been no swelling to her gum lines or any drainage noted. She states the lesions have spread to her gum lines, tongue, cheek, and posterior pharynx. Lesions are painful thus her ability to swallow and eat has been affected. She was evaluated in the [facility] recently and had a strep screen, monoscreen, and also influenza screen to which came back negative. She has arrived to the hospital today to be admitted for further management for these oral lesions. Patient has no history of a cold sores or genital herpes. 2 days after the lesion started in her mouth she developed a sore to the corner of the left side of her mouth to which she related to dry skin since she has not been drinking any fluids. The area has scabbed over and notes there was no ulceration-like appearance prior to scab. She denies any fever, chills, sinus congestion, runny nose, cough, nausea/ vomiting, or any additional rashes or lesions to her body. Patient is [address] Alcantar is the admitting physician. Allergies: penicillin and sulfabenzamide Medications: 1. vitamins 2. Albuterol inhaler when necessary 3. Phenergan 25 mg tablets by mouth every 6 hours when necessary for nausea 4. Zofran 8 mg dispersal tablets every 8 hours when necessary for nausea 5. Bactroban 2% ointment topically 3 times per day Past medical history: 1. Anxiety 2. Mood disorder 3. ADHD 4. History of alcohol abuse 5. Miscarriage times 21 January 2016 Vital Signs are stable. She is afebrile. On exam is alert and oriented, pleasant and cooperative, she answers all questions appropriately. She appears to be in mild pain. Head Atraumatic Normocephalic. Eyes: PERRL, EOMI eyes intact, non-icterus. Nose: septum midline, nares patent. Mouth: Scabbed over lesion to the left oral commissure. No redness, bleeding, swelling, drainage present. Per patient this started with cracked skin. Oromucosa is moist. Patient has multiple ulcer. Lesions to the gumline, soft/ hard palate, buccal mucosa, and time. There are varying size to these ulcers. Ulcerations have erythematous border with yellow/white center with no swelling or drainage noted. Multiple lesions noted to the gingiva along the gingival margin all way through into the mucosa. There also are some pinpoint small vesicles to the tongue. Patient has discomfort with examination. The posterior pharynx is nonerythematous with no tonsillar swelling, or exudates. Neck: Supple, trachea midline, with one slightly swollen lymph node on the anterior chain of the left side. Lungs: Clear to auscultation. Heart: RRR. No clicks rubs or murmurs noted. Skin: [place] warm and dry. No other lesions noted to her body. Peripheral vascular: Intact Assessment: Painful oral ulcerations. Differential may include but not limited to aphthous stomatitis versus herpetic stomatitis. Plan: Discussed patient with Dr. Alcantar. He will proceed with starting the patient on acyclovir prophylactically to treat for herpetic stomatitis. Swab of the lesions will be obtained to test for herpes.
[2018-08-21] MEDS: Dextrose 5%-Lactated Ringers 1,000 ML IV SCH (02:26)
[2018-08-21] MEDS: HYDROmorphone 0.5 MG/0.5 ML Syringe IVPUSH PRN ×5 (02:44→21:27)
[2018-08-21] MEDS: Ondansetron 4 MG/2 ML SDV IVPUSH PRN ×4 (02:53→22:03)
[2018-08-21] MEDS: Acetaminophen/oxyCODONE 325-5 MG Tab PO PRN (07:00)
[2018-08-21] MEDS: Aluminum Hydroxide/Magnesium Hydroxide/Simethicone Susp 30 ML Cup PO PRN ×4 (07:24→21:34)
[2018-08-21] MEDS: Lidocaine 2% Viscous Solution 15 ML Cup MUCMEM PRN ×4 (07:24→21:34)
[2018-08-21] MEDS: Acyclovir 200 MG Cap PO SCH ×3 (08:42→21:27)
[2018-08-21] MEDS: Acetaminophen/Codeine 300-30 MG Tab PO PRN ×2 (11:59→18:34)
[2018-08-21] MEDS ORDERED: LORazepam 0.5 MG Tab PO STA (15:37)
[2018-08-21] MEDS ORDERED: Lactated Ringers 1,000 ML IV SCH (18:30)
[2018-08-22] MEDS: Acetaminophen/Codeine 300-30 MG Tab PO PRN ×2 (02:16→08:32)
--- NOTE | 2018-08-22 06:43 | PCM.DCSUM1 ---
Discharge Summary - Hospital Course Free Text/Narrative:: Kassie is a 28-year-old 2 para 0010 white female who is seen in outpatient labor and delivery for complaints of oral ulcers/lesions that are very painful to the degree where she is not able to eat or drink anything for the last 2-4 days. She has had an evaluation in the [facility] ED department on at which time is felt to be a viral infection and for which she was sent home with conservative therapy such as throat lozenges and over-the- counter oral rinses. She is here today because she feels she is getting dehydrated end of pain is very severe. She is not able to swallow without significant discomfort. Baby has been active and she reports no problems specifically her directly with the . Laboratory testing done in the ED and [place], [place] showed no evidence of bladder infection. White blood count was normal for . Platelets were normal. Comprehensive metabolic profile was essentially normal. Patient is felt to have aphthous stomatitis and was discharged with comfort measures. ORTHO/PROSTHETIC AIDE history: Patient is seen relatively early in the on 03/24/2018 at 7-4/7 weeks. Her ARSEN is set at 11/06/2018 based upon ultrasound done on 2018. She's had another ultrasound since that time on 04/16/2018 which essentially correlated with her first ultrasound. Her weight gain has been from 160-169 pounds. Laboratory testing and shows blood to be O+ with negative ice cream. Hemoglobin first visit was 12.5 g/dL. Platelets 272,000. Rubella titer shows immunity. RPR is nonreactive hepatitis B surface antigen and hepatitis C were both nonreactive. Chlamydia and gonorrhea were both negative. She did have some abnormalities on her Pap smear at that time. These are not in her record. Second trimester hemoglobin was 12.7 and platelets are 255,000. Her TSH was 0.85 Michel instrument milliliter at first visit. Group B strep screen has not been done. She has not had her 1 hour GTT at this time yet. Diagnosis: Stroke: No - Discharge Data Discharge Date: 08/22/18 Discharge Disposition: Home, Self-Care 01 Condition: Good - Patient Summary/Data Consults: Consultations 08/20/18 15:00 Consult to Physician [CONS] Urgent 08/22/18 06:28 Consult to Fitter Type Bar And Segment [CONS] Routine Hospital Course: No intercourse the patient's hospital stay she was noted to have very severe mouth pain to the point where she could not talk or swallow initially. She was mildly to moderately dehydrated because of this. She was treated with IV fluid hydration with normal saline and lactated Ringer's. Initially pain was controlled with Dilaudid IV and finally patient was switched to Tylenol No. 3. She also used a mouth swish and swallow-containing lidocaine which improved her pain. A viral culture of the lesions was obtained and is still pending at this time. She was started empirically on acyclovir 400 mg orally 3 times a day. The course of 2 days in the hospital lesions began to resolve. Her pain now is less than upon admission. She has less anterior and posterior cervical chain lymphadenopathy and she did upon admission. Patient is given option of referral to [facility] for ENT consultation. She opted to stay here and monitor treat locally. Patient's condition is improved her she is tolerating fluids well. She is not becoming dehydrated at this time. Prior to discharge to be advised by rugby union footballer as to appropriate liquid attrition in until her oral ulcers resolved. Procedures been evaluated with nonstress tests which have been reactive. The patient reports good activity, no contractions infection concerns regarding the . The patient is desiring discharge home at this time she has an appointment to see dr. Taylor tomorrow. - Patient Instructions Diet: Regular Diet as Tolerated (Dietary recommendations per rugby union footballer regarding liquid nutrition stomatitis present) Activity: As Tolerated Driving: May Drive Today Showering/Bathing: May Shower (May take a bath) Notify Provider of: Fever, Increased Pain, Swelling and Redness - Discharge Plan Prescriptions/Med Rec: Acyclovir 400 mg PO TID #21 capsule Home Medications: Home Meds Ondansetron [Zofran ODT] 4 mg PO Q6H PRN 04/16/18 [History] PNV No.115/Iron Fumarate/FA [ 19 Chewable Tablet] 1 tab PO DAILY [History] Acetaminophen/Codeine [Tylenol with Codeine No.3 300MG/30MG] 2 tab PO Q4H PRN tablet 08/22/18 [Rx] Acyclovir 400 mg PO TID #21 capsule 08/22/18 [Rx] Diphenhyd/Lidocaine/MagAl/Avinash [First-Mouthwash BLM Susp] 30 ml PO ASDIRECTED PRN bottle 08/22/18 [Rx] Lidocaine 2% [Xylocaine 2% Viscous] 0 ml MUCMEM Q3H PRN cup 08/22/18 [Rx] Referrals: Kerline Taylor MD [Primary Care Provider] - (Return to clinictomorrow as already scheduledDr. Taylor.) - Discharge Summary/Plan Comment DC Time >30 min.: No Discharge Summary/Plan Comment: Discharge instructions: 1. Discharge home 2. Diet, activity and follow-up discussed with patient. Nutrition's recommendations given. 3. Precautions given concern increased pain, bleeding, temperature, signs/ symptoms of DVT/PE. 4. Medications per home medication was printed, discussed with and given to the patient. 5. [id number] Diagnosis: 1. Oral stomatitis-severe 2. dehydration upon admission secondary to problem #1 3. 28 week intrauterine Condition: Good - Patient Data Vitals - Most Recent: Last Vital Signs Temp 37.9 C 08/22/18 04:00 Pulse 77 08/22/18 04:00 Resp 14 08/22/18 04:00 BP 122/64 08/22/18 04:00 Pulse Ox 93 L 08/22/18 04:00 Weight - Most Recent: 75.296 kg I&O - Last 24 hours: Intake & Output 08/21/18 08/21/18 08/22/18 14:59 22:59 06:59 Intake Total 1000 240 Balance 1000 240 Med Orders - Current: Current Medications Acetaminophen/Codeine Phosphate (Tylenol With Codeine No.3 300mg/30mg) 2 tab PO Q4H PRN PRN Reason: Pain Last Admin: 08/22/18 02:16 Dose: 2 tab Acyclovir (Zovirax) 400 mg PO TID TEVIN Last Admin: 08/21/18 21:27 Dose: 400 mg Al Hydroxide/Mg Hydroxide (Mag-Al Plus) 30 ml PO Q4H PRN PRN Reason: Other Last Admin: 08/21/18 21:34 Dose: 30 ml Diphenhydr/Magaldrate/Simeth/Lidoca (First-Mouthwash Blm Susp) 30 ml PO ASDIRECTED PRN PRN Reason: Pain (moderate 4-6) Last Admin: 08/20/18 11:58 Dose: 30 ml Hydromorphone HCl (Dilaudid) 0.5 mg IVPUSH Q2H PRN PRN Reason: Pain Last Admin: 08/21/18 21:27 Dose: 0.5 mg Hydroxyzine HCl (Atarax) 50 mg PO Q4H PRN PRN Reason: Anxiety Last Admin: 08/21/18 10:53 Dose: 50 mg Lidocaine HCl (Xylocaine 2% Viscous) 0 ml MUCMEM Q3H PRN PRN Reason: Pain Last Admin: 08/21/18 21:34 Dose: 15 ml Ondansetron HCl (Zofran) 4 mg IVPUSH Q4H PRN PRN Reason: Nausea Last Admin: 08/21/18 22:03 Dose: 4 mg Sodium Chloride (Saline Flush) 10 ml FLUSH ASDIRECTED PRN PRN Reason: Keep Vein Open Discontinued Medications Lactated Ringer's (Ringers, Lactated) 1,000 mls @ 250 mls/hr IV ASDIRECTED TEVIN Last Admin: 08/20/18 13:06 Dose: 250 mls/hr Sodium Chloride (Normal Saline) 1,000 mls @ 1,000 mls/hr IV ONETIME ONE Stop: 08/20/18 12:32 Last Admin: 08/20/18 11:56 Dose: 1,000 mls/hr Dextrose/Lactated Ringer's (Dextrose 5%-Lactated Ringers) 1,000 mls @ 125 mls/ hr IV ASDIRECTED TEVIN Last Admin: 08/21/18 02:26 Dose: 125 mls/hr Lactated Ringer's (Ringers, Lactated) 1,000 mls @ 250 mls/hr IV ASDIRECTED TEVIN Stop: 08/21/18 22:29 Last Admin: 08/21/18 18:32 Dose: 250 mls/hr Lidocaine HCl (Xylocaine 2% Viscous) 15 ml PO ASDIRECTED PRN PRN Reason: Pain Lorazepam (Ativan) 0.5 mg PO ONETIME STA Stop: 08/21/18 15:38 Last Admin: 08/21/18 15:47 Dose: 0.5 mg Oxycodone/Acetaminophen (Percocet 325-5 Mg) 2 tab PO Q4H PRN PRN Reason: Pain Last Admin: 08/21/18 07:00 Dose: 2 tab
[2018-08-22] MEDS: Lidocaine 2% Viscous Solution 15 ML Cup MUCMEM PRN (08:31)
[2018-08-22] MEDS: Aluminum Hydroxide/Magnesium Hydroxide/Simethicone Susp 30 ML Cup PO PRN (08:31)
[2018-08-22] MEDS: Acyclovir 200 MG Cap PO SCH (08:31)
[2018-08-22 09:49] VITALS: BP 122/64
== END 2018-08-22 09:40 | disposition home or self-care (01) ==
LOC: JD.OBCHECK 10:04 → JD.OB 10:05 → JD.OBCHECK 08-21 09:31 → JD.OB 08-21 09:31
PROVIDERS: ADMIT Obstetrics & Gynecology; ATTEND Obstetrics & Gynecology
DX: K12.1 Other forms of stomatitis (principal); E86.0 Dehydration; Z33.1 Pregnant state, incidental; J45.909 Unspecified asthma, uncomplicated; F41.9 Anxiety disorder, unspecified; F90.9 Attention-deficit hyperactivity disorder, unspecified type; Z87.891 Personal history of nicotine dependence; Z88.0 Allergy status to penicillin; Z88.2 Allergy status to sulfonamides
CPT/HCPCS: 36415; 59025; 80048; 86592; 87801; 96361; 96374; 96375; 96376; A9270; G0378; J1170; J2405; J7040; J7042; J7120; 96360

== ENCOUNTER 2018-11-30 21:15 | Emergency (ER) | payer OTHER ==
[2018-11-30 21:26] VITALS: BP 137/94; PULSE 75
== END 2018-11-30 22:15 | disposition left against medical advice (07) ==
LOC: JD.ED 21:15
DX: Z53.21 Procedure and treatment not carried out due to patient leaving prior to being seen by health care provider (principal)

== ENCOUNTER 2019-01-17 18:07 | Emergency (ER) | payer OTHER ==
[2019-01-17 18:24] VITALS: BP 149/98; PULSE 110
--- NOTE | 2019-01-17 19:28 | EDM.PDOCBH ---
ED HPI GENERAL MEDICAL PROBLEM - General Chief Complaint: Behavioral/Psych Stated Complaint: ANXIETY/DEPRESSION Time Seen by Provider: 01/17/19 18:52 Source of Information: Reports: Patient History Limitations: Reports: No Limitations - History of Present Illness INITIAL COMMENTS - FREE TEXT/NARRATIVE: Ms. Hines is a pleasant 28 year old woman who states that she has been suffering from depression for the past 2 months, along with anxiety that has been getting worse. She states that she has been crying a lot, and the triage nurse noted that the patient was crying in her presence, although the patient is not crying in mine. She was started on Zoloft around 11/12/2018, and is also on Vyvanse for ADHD. She states that the Vyvanse seems to make her anxiety worse, although not as bad as Ritalin that she was initially prescribed. Additionally, she is prescribed clonidine that she takes on an as- needed basis, with her last dose about one week ago. She doesn't like to take clonidine, because, she states, it makes her sleepy. The patient is accompanied by her infant daughter. She states that she and her boyfriend (the infant's father) live in [place], but that they got into an argument last night, and he put her out. She stated that she is driving west, to [place], where her parents live, but that she started to have a panic attack, therefore came here. The patient stated "I don't feel right", and that she has been "puking". She denies feeling suicidal or homicidal, and she states that she is not looking for psychiatric hospitalization. She states that she has attempted suicide 3 times in the past, but it was by superficial cutting. The patient states that she does not feel like she can adequately take care of her infant. While she and her boyfriend live in [place], her boyfriend works here in [employer], and will be here around 19:30 to pick the child up. The patient acknowledged that she was "an alcoholic" for one year prior to the of her child, and that she has only drunk a couple of times since the of her child, most recently last month, when she drank a bottle of alcohol. She is afraid to drink alcohol now, as she feels it may worsen her anxiety symptoms. Other than recent nausea and vomiting, the patient denies any recent illnesses, such as fever or chills, cough, dyspnea, chest pain, palpitations, constipation , diarrhea, abdominal pain, recent weight gain or weight loss, recent bloody bowel movements or black bowel movements, recent joint aches, headaches, rashes , or urinary symptoms. The patient's PCP/DIESEL ENGINE SPECIALIST is Dr. Kerline Taylor. Her Psychiatrist is Dr. Abena Arce, in [place]. - Related Data Allergies Allergy/AdvReac Type Severity Reaction Status Date / Time penicillin Allergy Cannot Verified 01/17/19 18:23 Remember sulfabenzamide Allergy Cannot Verified 01/17/19 18:23 Remember Home Meds: Home Meds Sertraline [Zoloft] 150 mg PO DAILY 11/19/18 [History] Lisdexamfetamine Dimesylate [Vyvanse] 40 mg PO DAILY 01/17/19 [History] Past Medical History Respiratory History: Reports: Asthma (as a child - asymptomatic since) DIESEL ENGINE SPECIALIST History: Reports: , Spontaneous Psychiatric History: Reports: ADHD, Addiction (alcohol), Anxiety, Depression, Psych Hospitalization(s), Suicide Attempt - Infectious Disease History Infectious Disease History: Reports: Chicken Pox, Herpes, MRSA - Past Surgical History HEENT Surgical History: Reports: Myringotomy w Tube(s) (bilateral), Tonsillectomy Female Surgical History: Reports: Breast Implant Social & Family History - Family History Family Medical History: Noncontributory HEENT: Reports: None Cardiac: Reports: Hypertension Psychiatric: Reports: ADHD, Anxiety, Depression Endocrine/Metabolic: Reports: Diabetes, type II Dermatologic: Reports: None - Tobacco Use Smoking Status *Q: Former Smoker Years of Tobacco use: 1 Packs/Tins Daily: 0.5 Month/Year Tobacco Last Used: Quit Jan 2018 Second Hand Smoke Exposure: No - Caffeine Use Caffeine Use: Reports: Coffee, Energy Drinks, Soda - Alcohol Use Alcohol Use History: Yes Date/Time of Last Drink Comment: Identifies as an alcoholic. Last drink Nov 2018. - Recreational Drug Use Recreational Drug Use: Yes Drug Use in Last 12 Months: No Recreational Drug Type: Reports: Marijuana/Hashish (last smoked 2017) - Living Situation & Occupation Living situation: Reports: Single, with Significant Other (Boyfriend), with Family (Infant daughter) Occupation: Unemployed ED ROS GENERAL - Review of Systems Review Of Systems: ROS reveals no pertinent complaints other than HPI. GI/Abdominal: Reports: Constipation (chronic) ED EXAM, BEHAVIORAL HEALTH - Physical Exam Exam: See Below Exam Limited By: No Limitations General Appearance: Alert, WD/WN, No Apparent Distress Eye Exam: Bilateral Eye: EOMI, Normal Inspection Ears: Normal External Exam, Hearing Grossly Normal Nose: Normal Inspection Throat/Mouth: Normal Inspection, Normal Lips, Normal Voice, No Airway Compromise Head: Atraumatic, Normocephalic Neck: Normal Inspection, Full Range of Motion Respiratory/Chest: No Respiratory Distress, Lungs Clear, Normal Breath Sounds, No Accessory Muscle Use Cardiovascular: Normal Peripheral Pulses, Regular Rate, Rhythm, No Edema, No Gallop, No JVD, No Murmur, No Rub GI/Abdominal: Normal Bowel Sounds, Soft, Non-Tender, No Organomegaly, No Distention, No Abnormal Bruit, No Mass (Female) Exam: Deferred Rectal (Female) Exam: Deferred Back Exam: Normal Inspection, Full Range of Motion, NT Extremities: Normal Inspection, Normal Range of Motion, No Pedal Edema, Normal Capillary Refill Neurological: Alert, Normal Cognition, No Motor/Sensory Deficits, Oriented x 3 Psychiatric: Normal Affect (relates sadness and anxiety, but not currrently crying) Skin Exam: Warm, Dry, Intact, Normal color, No rash COURSE, BEHAVIORAL HEALTH COMP - Course Vital Signs: Last Vital Signs Temp 37.5 C 01/17/19 18:18 Pulse 110 H 01/17/19 18:18 Resp 16 01/17/19 18:18 BP 149/98 H 01/17/19 18:18 Pulse Ox 100 01/17/19 18:18 Medical Clearance: 01/17/19 19:19 As per the HPI, the patient is feeling depressed and anxious, although she is not suicidal or homicidal. Her boyfriend will likely be here in the next few minutes to pickers material handlers their baby, and the patient's ultimate plan is to then drive to [place] where she has family, however, in the meantime, she is suffering from significant anxiety and doesn't feel right. I have spoken to Radhika from social media specialist, and she will come by and talk to the patient. Our plan is to have her evaluated by Dr. Elise via telemedicine. She doesn't meet criterion for an emergency psychiatric admission, and she probably doesn't meet criterion for placement into observation here, either, but we are prepared to keep her in the ED overnight, if that is what Dr. Elise recommends. 01/17/19 19:29 Notified that the patient's boyfriend is here in the waiting room. I would like to have Radhika talk to the patient prior to having the patient's boyfriend take the baby, in case the ultimate decision is to have the baby stay with her mother. 01/17/19 20:53 Radhika has spoken to the patient, and the patient has gone to the waiting room and talked with her boyfriend, as well. At present, the patient would like to keep the baby, and Radhika has contacted our local [facility] assisted, and they will come to the ED to evaluate the patient, with the plan of the patient staying there overnight. Case discussed with Dr. Elise at 20:41. Since the patient is not suicidal, he did not feel the need to directly interview her via telemedicine. He very much likes the idea of the patient staying [facility]. If the patient is not breast-feeding, and she is somewhat agitated, she could be given Ativan 1 mg po BID for 3 to 5 days. If the patient is breast-feeding, however, he would prefer that she not receive Ativan. In addition, if the patient is breast-feeding, she probably should not be taking Vyvanse. Zoloft and clonidine are safe with breast-feeding. 01/17/19 20:56 The patient is not breast-feeding. 01/17/19 21:13 Notified by Zara THORNE that the patient now wants to go to her boyfriend's father 's place in [place], [place], a [address], and not go to [facility]. She would, however, like a prescription for a sedative, however, if the patient is not willing to go to the [facility], then I am less impressed that she needs a sedative. I would still like the patient to be evaluated by the staff from the [facility], to see if they can convince her to stay the night. 01/17/19 21:40 Notified by Radhiak that the patient does not want to talk to the women's assisted staff, and does not want to stay here in the ED overnight. She simply wants to be discharged. Departure - Departure Time of Disposition: 21:47 Disposition: Home, Self-Care 01 Condition: Good Clinical Impression: Anxiety, Depression - Discharge Information *PRESCRIPTION DRUG MONITORING PROGRAM REVIEWED*: Not Applicable *COPY OF PRESCRIPTION DRUG MONITORING REPORT IN PATIENT LIZ: Not Applicable Referrals: Kerline Taylor MD [Primary Care Provider] - Marleni Arce MD [Ordering Only Provider] - Forms: ED Department Discharge Additional Instructions: You were seen in the emergency room for depression and worsening anxiety over the past couple of months. You were evaluated by social media specialist in the ER, and your case was discussed with the Psychiatrist Dr. Elise. Either staying the night in the ER or going to the women's assisted was recommended, but declined. We recommend that you follow-up with your Psychiatrist, Dr. Arce, at the next available appointment. If any other problems, please do not hesitate to return to the ER.
== END 2019-01-17 22:37 | disposition left against medical advice (07) ==
LOC: JD.ED 18:07
DX: F41.9 Anxiety disorder, unspecified (principal); F39 Unspecified mood [affective] disorder; F90.9 Attention-deficit hyperactivity disorder, unspecified type; Z88.0 Allergy status to penicillin; Z88.1 Allergy status to other antibiotic agents; Z79.899 Other long term (current) drug therapy; Z87.891 Personal history of nicotine dependence
CPT/HCPCS: 99283; 99284

== ENCOUNTER 2019-11-02 22:24 | Emergency (ER) | payer MEDICAID ==
[2019-11-02 22:39] VITALS: BP 153/111; PULSE 71
[2019-11-02] MEDS ORDERED: Lactated Ringers 1,000 ML IV SCH (23:00)
--- NOTE | 2019-11-02 23:24 | EDM.PDOCBH ---
ED HPI GENERAL MEDICAL PROBLEM - General Chief Complaint: Behavioral/Psych Stated Complaint: overdose on piss mixture Time Seen by Provider: 11/02/19 22:49 Source of Information: Reports: Patient History Limitations: Reports: Intoxication - History of Present Illness INITIAL COMMENTS - FREE TEXT/NARRATIVE: Ms. Hines is a 29-year-old woman with a past medical history significant for depression, anxiety, ADHD, and alcoholism, who now presents the ED stating that she drank 1 L of [place] rum over the course of today, that she took her prescribed 3 doses of Adderall 90 mg over the course of the day, then took 6 to 8 tablets of lorazepam 1 mg around 22:00 this evening. She acknowledges that the lorazepam was excessive, but states that it was not a suicide attempt, rather, it was only an attempt to get some sleep, as, she states, she has not been able to sleep over the past few days. The patient states that she has been drinking daily, with occasional days off, since last year. She was started on lorazepam in December 2018. She states that she has not previously undergone inpatient drug or alcohol treatment. The patient states that she came here because she is looking for help. She states that she would like to be admitted to [facility] for drug and alcohol treatment, but not for a psychiatric admission. Here in the ED, the patient is found to be mildly hypertensive with a BP of 153/111, otherwise, she is hemodynamically stable, afebrile, saturating 100% on room air. The patient denies having a recent fever, chills, sore throat, ear pain, nasal or sinus congestion, cough, dyspnea, chest pain, palpitations, nausea, vomiting, constipation, diarrhea, abdominal pain, urinary symptoms, recent weight gain or weight loss, recent bloody bowel movements or black bowel movements, recent joint aches, headaches, or rashes. The patient's PCP is Dr. Stepan Wyman. Her Truckload Checker is Dr. Kerline Taylor. She states that she is not currently under the care of a Psychiatrist. Headache Pain Score (Numeric/FACES): 10 - Related Data Allergies Allergy/AdvReac Type Severity Reaction Status Date / Time penicillin Allergy Severe Cannot Verified 11/02/19 22:39 Remember sulfabenzamide Allergy Severe Cannot Verified 11/02/19 22:39 Remember Home Meds: Home Meds Dextroamphetamine/Amphetamine [Adderall] 90 mg PO ASDIRECTED 11/02/19 [History] LORazepam [Ativan] 1 mg PO ASDIRECTED PRN 11/02/19 [History] Past Medical History Respiratory History: Reports: Asthma (as a child - asymptomatic since) HEAD CLEANING PORTER History: Reports: Spontaneous Psychiatric History: Reports: ADHD, Addiction (alcohol), Anxiety, Depression, Psych Hospitalization(s), Suicide Attempt - Infectious Disease History Infectious Disease History: Reports: Chicken Pox, Herpes, MRSA - Past Surgical History HEENT Surgical History: Reports: Myringotomy w Tube(s) (bilateral), Tonsillectomy Female Surgical History: Reports: Breast Implant Social & Family History - Family History Family Medical History: Noncontributory HEENT: Reports: None Cardiac: Reports: Hypertension Psychiatric: Reports: ADHD, Anxiety, Depression Endocrine/Metabolic: Reports: Diabetes, type II Dermatologic: Reports: None - Tobacco Use Smoking Status *Q: Current Every Day Smoker Years of Tobacco use: 3 Packs/Tins Daily: 0.1 Packs/Tins Daily Comment: Down from 03/23 ppd - Caffeine Use Caffeine Use: Reports: None - Alcohol Use Alcohol Use History: Yes Alcohol Use Frequency: Daily - Recreational Drug Use Recreational Drug Use: Yes Drug Use in Last 12 Months: Yes Recreational Drug Type: Reports: Marijuana/Hashish (last smoked late September 2019) - Living Situation & Occupation Living situation: Reports: Single, with Significant Other (Boyfriend), with Family (1 yr old daughter) Occupation: Unemployed ED ROS GENERAL - Review of Systems Review Of Systems: Comprehensive ROS is negative, except as noted in HPI. ED EXAM, BEHAVIORAL HEALTH - Physical Exam Exam: See Below Exam Limited By: No Limitations General Appearance: Alert, WD/WN, No Apparent Distress Eye Exam: Bilateral Eye: EOMI, Normal Inspection Ears: Normal External Exam, Hearing Grossly Normal Nose: Normal Inspection Throat/Mouth: Normal Inspection, Normal Lips, Normal Voice, No Airway Compromise Head: Atraumatic, Normocephalic Neck: Normal Inspection, Full Range of Motion Respiratory/Chest: No Respiratory Distress, Lungs Clear, Normal Breath Sounds, No Accessory Muscle Use Cardiovascular: Normal Peripheral Pulses, Regular Rate, Rhythm, No Edema, No Gallop, No JVD, No Murmur, No Rub GI/Abdominal: Normal Bowel Sounds, Soft, Non-Tender, No Organomegaly, No Distention, No Abnormal Bruit, No Mass (Female) Exam: Deferred Rectal (Female) Exam: Deferred Back Exam: Normal Inspection, Full Range of Motion, NT Extremities: Normal Inspection, Normal Range of Motion, No Pedal Edema, Normal Capillary Refill Neurological: Alert, No Motor/Sensory Deficits, Oriented x 3, Other (Mildly slurred speech) Psychiatric: Normal Affect Skin Exam: Warm, Dry, Intact, Normal color, No rash EKG INTERPRETATION EKG Date: 11/02/19 Time: 23:16 Rhythm: NSR Rate (Beats/Min): 76 [place]: Normal P-Wave: Present QRS: Normal ST-T: Normal QT: Normal Comparison: NA - No Prior EKG COURSE, BEHAVIORAL HEALTH COMP - Course Vital Signs: Last Vital Signs Temp 36.9 C 11/02/19 22:34 Pulse 71 11/02/19 22:34 Resp 22 H 11/02/19 22:34 BP 153/111 H 11/02/19 22:34 Pulse Ox 100 11/02/19 22:34 Orders, Labs, Meds: Active Orders 24 hr Category Date Time Status DRUG SCREEN, URINE [URCHEM] Stat Lab 11/02/19 22:59 Ordered HCG QUALITATIVE,URINE [URCHEM] Stat Lab 11/02/19 22:40 Received Laboratory Tests 11/02/19 11/02/19 11/02/19 Range/Units 22:40 22:40 22:40 WBC 9.36 (3.98-10.04) K/mm3 RBC 4.52 (3.98-5.22) M/mm3 Hgb 12.3 D (11.2-15.7) gm/dl Hct 36.6 (34.1-44.9) % MCV 81.0 D (79.4-94.8) fl MCH 27.2 (25.6-32.2) pg MCHC 33.6 (32.2-35.5) g/dl RDW Std Deviation 49.8 H (36.4-46.3) fL Plt Count 293 D (182-369) K/mm3 MPV 10.1 (9.4-12.3) fl Neutrophils % (Manual) 75 H (40-60) % Band Neutrophils % 0 (0-10) % Lymphocytes % (Manual) 19 L (20-40) % Atypical Lymphs % 0 % Monocytes % (Manual) 6 (2-10) % Eosinophils % (Manual) 0 L (0.7-5.8) % Basophils % (Manual) 0 L (0.1-1.2) Platelet Estimate Adequate Poikilocytosis 1+ slight Ovalocytes 1+ slight RBC Morph Comment Not Reportable Sodium 137 (136-145) mEq/L Potassium 2.8 L (3.5-5.1) mEq/L Chloride 100 (98-107) mEq/L Carbon Dioxide 22 (21-32) mEq/L Anion Gap 17.8 H (5-15) BUN 8 (7-18) mg/dL Creatinine 0.8 (0.55-1.02) mg/dL Est Cr Clr Drug Dosing 95.05 mL/min Estimated GFR (MDRD) > 60 (>60) mL/min BUN/Creatinine Ratio 10.0 L (14-18) Glucose 88 (74-106) mg/dL Calcium 9.1 (8.5-10.1) mg/dL Magnesium 1.6 L (1.8-2.4) mg/dl Total Bilirubin 1.2 H (0.2-1.0) mg/dL AST 24 (15-37) U/L ALT 22 (14-59) U/L Alkaline Phosphatase 71 (46-116) U/L Total Protein 8.3 H (6.4-8.2) g/dl Albumin 4.4 (3.4-5.0) g/dl Globulin 3.9 gm/dL Albumin/Globulin Ratio 1.1 (1-2) TSH 3rd Generation 1.615 (0.358-3.74) uIU/mL Salicylates < 0.2 L (2.8-20) mg/dL Acetaminophen 0 L (10-30) ug/mL Ethyl Alcohol 0.06 (0.00) gm% Medications Discontinued Medications Generic Name Dose Route Start Last Admin Trade Name Freq PRN Reason Stop Dose Admin Lactated Ringer's 1,000 mls @ 125 mls/hr 11/02/19 23:00 11/02/19 23:27 Ringers, Lactated IV 125 mls/hr ASDIRECTED TEVIN Administration Magnesium Sulfate 2 gm/ Premix 50 mls @ 25 mls/hr 11/03/19 00:01 11/03/19 00:15 IV 11/03/19 02:00 25 mls/hr ONETIME ONE Administration Medical Clearance: 11/02/19 23:18 As above, the patient drank 1 L of [place] rum over the course of today, took her usual 90 mg of Adderall 3 times today, and then took 6 to 8 tablets of lorazepam 1 mg around 22:00 tonight, all in an effort, she says, to try to go to sleep, however, she brought herself to the ED stating that she knows that she is out of control, requesting drug and alcohol treatment at [facility]. On examination, the patient is clinically intoxicated, and obtaining an exact history from her is difficult, as she rambles and changes the subject frequently, however, no physical abnormalities were found on exam. I have ordered a standard psychiatric medical clearance panel, and in the meantime, the patient will be given LR at 125 mL/h. 11/03/19 00:02 The patient's CBC is unremarkable. Her CMP is remarkable for a potassium depressed at 2.8, and an anion gap mildly elevated at 17.8, but with a bicarbonate normal at 22, with the remainder of her CMP being unremarkable. Her magnesium level is depressed at 1.6. Her TSH is within normal limits at 1.615. Her EtOH level is elevated at 0.06. Her acetaminophen level is 0. Her salicylate level is undetectably low. Based on the above, I have ordered a 2 g Mg-rider. Once that has finished infusing, I will order 40 mEq of oral KCl. 11/03/19 01:26 Notified by Breanna THORNE about 20 to 30 minutes ago that the patient was having a panic attack, and wanted to talk to me. When I went to talk to the patient, however, she did not appear to be panicking, but did tell me that she wanted to go home. I explained that her blood work showed her magnesium level to be low, which we were replacing with IV magnesium, and once that was finished, we were going to give her oral potassium to replace her low potassium level. Once medically cleared, it was my intention to contact [facility] to see if the patient could be admitted for drug and alcohol treatment. The patient was agreeable, however, about 10 minutes ago Breanna THORNE again informed me that the patient wanted to leave. I went and talked to the patient again, at length. The patient this time insisted that she was going to go home. She stated that her phone , and that she wanted to talk to her daughter. I reminded the patient that it is after 1:00 in the morning, and that her daughter is only 1 year old. I explained that I do not feel that she is medically fit to be discharged, and I am concerned about her excessive drug and alcohol use. The patient acknowledged that she needs treatment. I explained that at this time, because I do not feel that she is medically fit, if she gets up and leaves, as she has threatened to do, that I will be forced to call the police, and she will likely wind up spending the night in penitentiary. She acknowledges that she does not want to do that. At this time, because of the patient's threat to leave, I will place her under a 24-hour hold. 11/03/19 02:29 Notified by Breanna THORNE that the patient eloped from the ED while I was in seeing another patient. Departure - Departure Time of Disposition: 02:30 Disposition: Eloped 07 Condition: Fair Clinical Impression: Alcohol intoxication, Chronic alcoholism, Hypomagnesemia, Hypokalemia, Intentional lorazepam overdose - Discharge Information *PRESCRIPTION DRUG MONITORING PROGRAM REVIEWED*: Yes *COPY OF PRESCRIPTION DRUG MONITORING REPORT IN PATIENT LIZ: No Referrals: Stepan Wyman MD [Primary Care Provider] - Kerline Taylor MD [Physician] - Forms: ED Department Discharge Sepsis Event Note (ED) - Evaluation Sepsis Screening Result: No Definite Risk - Focused Exam Vital Signs: Vital Signs Temp Pulse Resp BP Pulse Ox 11/02/19 22:34 36.9 C 71 22 H 153/111 H 100 - My Orders Last 24 Hours: My Active Orders 11/02/19 22:40 HCG QUALITATIVE,URINE [URCHEM] Stat 11/02/19 22:59 DRUG SCREEN, URINE [URCHEM] Stat - Assessment/Plan Last 24 Hours: My Active Orders 11/02/19 22:40 HCG QUALITATIVE,URINE [URCHEM] Stat 11/02/19 22:59 DRUG SCREEN, URINE [URCHEM] Stat
[2019-11-02 23:51] LABS: ACETAMINOPHEN 0 ug/mL (10-30)
[2019-11-03] MEDS ORDERED: Magnesium Sulfate/Water 2 GM in Premix Bag 1 BAG IV ONE (00:01)
== END 2019-11-03 02:35 | disposition left against medical advice (07) ==
LOC: EEVIPCON 22:24 → JD.ED 22:24
DX: F10.229 Alcohol dependence with intoxication, unspecified (principal); T42.4X2A Poisoning by benzodiazepines, intentional self-harm, initial encounter; E83.42 Hypomagnesemia; E87.6 Hypokalemia; F41.9 Anxiety disorder, unspecified; F32.9 Major depressive disorder, single episode, unspecified; Z88.0 Allergy status to penicillin; Z88.2 Allergy status to sulfonamides
CPT/HCPCS: 36415; 80053; 80307; 83735; 84443; 85007; 85027; 93005; 96365; 99285; J3475; J7120; 93010; 99284

== ENCOUNTER 2020-10-07 12:39 | Emergency (ER) | payer MEDICAID, OTHER ==
[2020-10-07 13:01] VITALS: BP 151/88; PULSE 62
--- NOTE | 2020-10-07 13:30 | EDM.PDOC ---
ED HPI GENERAL MEDICAL PROBLEM - General Chief Complaint: ENT Problem Stated Complaint: TOOTH PAIN Time Seen by Provider: 10/07/20 13:20 Source of Information: Reports: Patient History Limitations: Reports: No Limitations - History of Present Illness INITIAL COMMENTS - FREE TEXT/NARRATIVE: 30-year-old female presents to the ED with severe dental pain molar tooth. Unable to sleep all night last night. Took over4 g of Tylenol last evening and also had Tylenol with codeine tablet without any relief of the pain. Pain is constant pulsating and throbbing. He does radiate along her mandible and up towards her left ear. She feels a feeling did come out of this to the few weeks ago and now the tooth has become infected. She has contacted a dentist and has an appointment set up for next week. Does have mild associated nausea. Unable to eat at all. Onset: Sudden Onset Date: 10/06/20 Duration: Hour(s):, Constant, Getting Worse Location: Reports: Face (Pain left lower molar) Quality: Reports: Ache, Throbbing, Other Severity: Severe (Sitting. Pain radiates to the left ear rates pain as 10 out of 10) Improves with: Reports: None Worsens with: Reports: Other (Get some relief with) Context: Reports: Other (Continuous occurrence). Denies: Activity ( drinking constant sips of water), Exercise, Lifting, Sick Contact, Trauma Associated Symptoms: Reports: Loss of Appetite, Malaise, Nausea/Vomiting (Nauseated with no vomiting.). 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: Acetaminophen (Took an excessive amount of acetaminophen yesterday 4 g.) left facial Pain Score (Numeric/FACES): 7 - Related Data Allergies Allergy/AdvReac Type Severity Reaction Status Date / Time penicillin Allergy Severe Cannot Verified 11/02/19 22:39 Remember sulfabenzamide Allergy Severe Cannot Verified 11/02/19 22:39 Remember Home Meds: Home Meds Dextroamphetamine/Amphetamine [Adderall] 90 mg PO ASDIRECTED 11/02/19 [History] LORazepam [Ativan] 1 mg PO ASDIRECTED PRN 11/02/19 [History] Ondansetron [Zofran] 4 mg BUCCAL Q6H PRN #8 tab 10/07/20 [Rx] clindamycin HCL [Clindamycin HCl] 300 mg PO TID #24 capsule 10/07/20 [Rx] oxyCODONE HCl/Acetaminophen [Percocet 5-325 mg Tablet] 1 - 2 each PO Q4H PRN #20 tablet 10/07/20 [Rx] Past Medical History HEENT History: Reports: Other (See Below) Other HEENT History: 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 Cardiovascular History: Reports: Other (See Below) Other Cardiovascular History: heart palpitations Respiratory History: Reports: Asthma Gastrointestinal History: Reports: Chronic Constipation, GERD Genitourinary History: Reports: None QA MANAGER History: Reports: Spontaneous Other QA MANAGER History: low estrogen levels per pt report Musculoskeletal History: Reports: None Neurological History: Reports: None Psychiatric History: Reports: ADHD, Addiction, Anxiety, Depression, Psych Hospitalization(s), Suicide Attempt Other Psychiatric History: hx of impulsiveness, suicide attempt 10/2014, denies any current ideation Endocrine/Metabolic History: Reports: None Hematologic History: Reports: None Immunologic History: Reports: None Oncologic (Cancer) History: Reports: None Dermatologic History: Reports: None - Infectious Disease History Infectious Disease History: Reports: Chicken Pox, Herpes, MRSA Other Infectious Disease History: Hx of MRSA - Past Surgical History Head Surgeries/Procedures: Reports: None HEENT Surgical History: Reports: Myringotomy w Tube(s), Tonsillectomy Other HEENT Surgeries/Procedures: had postop tonsillectomy bleed and staph infection-2004. nose bleed - MRSA 05/2018 Cardiovascular Surgical History: Reports: None Respiratory Surgical History: Reports: None GI Surgical History: Reports: None Female Surgical History: Reports: Breast Implant Endocrine Surgical History: Reports: None Neurological Surgical History: Reports: None Musculoskeletal Surgical History: Reports: None Oncologic Surgical History: Reports: None Dermatological Surgical History: Reports: Plastic Surgical Reconstruction/Repair Social & Family History - Family History Family Medical History: No Pertinent Family History HEENT: Reports: None Cardiac: Reports: Hypertension Psychiatric: Reports: ADHD, Anxiety, Depression Endocrine/Metabolic: Reports: Diabetes, type II Dermatologic: Reports: None - Tobacco Use Tobacco Use Status *Q: Current Some Day Tobacco User Years of Tobacco use: 10 Packs/Tins Daily: 0.1 - Caffeine Use Caffeine Use: Reports: None - Recreational Drug Use Recreational Drug Use: No - Living Situation & Occupation Living situation: Reports: Single, with Significant Other (Boyfriend), with Family (1 yr old daughter) Occupation: Unemployed ED ROS ENT - Review of Systems Review Of Systems: See Below Constitutional: Reports: Malaise, Fatigue, Decreased Appetite. Denies: Fever, Chills, Weight Loss HEENT: Reports: Dental Pain ( dental infection lower molar.), Ear Pain (And refe rred to the left ear from) Respiratory: Reports: No Symptoms Cardiovascular: Reports: No Symptoms Endocrine: Reports: No Symptoms GI/Abdominal: Reports: No Symptoms : Reports: No Symptoms Musculoskeletal: Reports: No Symptoms Skin: Reports: No Symptoms Neurological: Reports: No Symptoms Psychiatric: Reports: Other (ADDH.) Hematologic/Lymphatic: Reports: No Symptoms Immunologic: Reports: No Symptoms ED EXAM, ENT - Physical Exam Exam: See Below Exam Limited By: No Limitations General Appearance: Alert, WD/WN, Mild Distress, Other (Afebrile with a temperature of 36.8. Heart rate 62 and sinus. Respiratory is 18 with O2 sats of 100% room air. BP 151/88.) Eye Exam: Bilateral Eye: Normal Inspection, PERRL Ears: Normal TMs Mouth/Throat: Dental Pain (Upper tooth is the left lower first molar tooth. Both the first and second lower molars have extensive fillings from cavities. This tooth is excessively tender to palpation with tongue blade.), Dental Tenderness (Left first molar tooth), Other (Significant gingival swelling around the first molar lower tooth but no abscess) Head: Atraumatic ( at present.), Normocephalic Neck: Normal Inspection, Supple, Non-Tender, Full Range of Motion, Lymphadenopathy (L). No: Lymphadenopathy (R) (Minimal on the left side) Respiratory/Chest: No Respiratory Distress, Lungs Clear, Normal Breath Sounds, No Accessory Muscle Use Cardiovascular: Normal Peripheral Pulses, Regular Rate, Rhythm, No Edema, No Gallop, No Murmur, No Rub Course - Vital Signs Last Recorded V/S: Last Vital Signs Temp 36.8 C 10/07/20 12:58 Pulse 62 10/07/20 12:58 Resp 18 10/07/20 12:58 BP 151/88 H 10/07/20 12:58 Pulse Ox 100 10/07/20 12:58 - Radiology Interpretation Free Text/Narrative:: 30-year-old female presents to the ED with dental pain coming from left lower molar tooth. She believes the dental filling came looser out of the tooth about 2 weeks ago. Current pain is coming from the left lower first molar tooth clinically. Surrounding gingiva swelling without abscess formation. She has plans to follow-up with dentist next week. Plan clindamycin 300 mg three times daily for the next 8 days. Percocet tabs 5/325 mg strength one or two every 4-6 hours necessary for pain relief. Zofran 4 mg under the tongue every 4-6 hours necessary for nausea relief so that we ensure that her medications stay down. She will use Motrin 600 mg every 6 hours as well to relieve pain and inflammation. Departure - Departure Time of Disposition: 13:26 Disposition: Home, Self-Care 01 Condition: Fair Clinical Impression: Dental abscess - Discharge Information *PRESCRIPTION DRUG MONITORING PROGRAM REVIEWED*: Not Applicable *COPY OF PRESCRIPTION DRUG MONITORING REPORT IN PATIENT LIZ: Not Applicable Prescriptions: clindamycin HCL [Clindamycin HCl] 300 mg PO TID #24 capsule oxyCODONE HCl/Acetaminophen [Percocet 5-325 mg Tablet] 1 - 2 each PO Q4H PRN #20 tablet PRN Reason: pain relief. Ondansetron [Zofran] 4 mg BUCCAL Q6H PRN #8 tab PRN Reason: nausea or vomiting Referrals: Stepan Wyman MD [Primary Care Provider] - Forms: ED Department Discharge Additional Instructions: Evaluation in the emergency room today in regards to dental pain secondary to a dental abscess coming from the left lower first molar tooth. Treatment is antibiotic clindamycin 300 mg three times daily for the next 8 days to clear up dental infection. Zofran 4 mg under the tongue every 4-6 hours necessary for nausea relief. Percocet tabs 5/325 mg strength one or two every 4-6 hours necessary for pain relief. Note you should not operate machinery or drive a motor vehicle while taking narcotic pain medication. They also do cause constipation. If this is an issue you may want to start MiraLAX powder 17 g or 1 packet every day to prevent constipation while taking the stronger pain medication. Expect 2 days for the antibiotic to start to work and then pain relief should start to occur as the infection comes under control. Follow-up with dentist as planned. Sepsis Event Note (ED) - Evaluation Sepsis Screening Result: No Definite Risk - Focused Exam Vital Signs: Vital Signs Temp Pulse Resp BP Pulse Ox 10/07/20 12:58 36.8 C 62 18 151/88 H 100
== END 2020-10-07 13:35 | disposition home or self-care (01) ==
LOC: JD.ED 12:39
DX: K04.7 Periapical abscess without sinus (principal); K02.9 Dental caries, unspecified; Z72.0 Tobacco use; Z88.0 Allergy status to penicillin; Z88.8 Allergy status to other drugs, medicaments and biological substances
CPT/HCPCS: 99283

== ENCOUNTER 2021-04-19 06:29 | Emergency (ER) | payer MEDICAID ==
[2021-04-19 06:47] VITALS: BP 143/88; PULSE 76
[2021-04-19] MEDS ORDERED: Diazepam 5 MG Tab PO ONE (07:27)
[2021-04-19] MEDS ORDERED: Ondansetron 4 MG Tab.DIS PO ONE (07:27)
[2021-04-19] MEDS ORDERED: LORazepam 1 MG Tab PO ONE (07:35)
== END 2021-04-19 09:25 | disposition home or self-care (01) ==
LOC: JD.ED 06:29
DX: F41.9 Anxiety disorder, unspecified (principal); J45.909 Unspecified asthma, uncomplicated; Z88.0 Allergy status to penicillin; Z88.2 Allergy status to sulfonamides
CPT/HCPCS: 99283; A9270

== ENCOUNTER 2021-08-14 04:07 | Emergency (ER) | payer MEDICAID ==
[2021-08-14 04:20] VITALS: BP 122/63; PULSE 100
[2021-08-14] MEDS ORDERED: ALPRAZolam 0.25 MG Tab PO ONE (04:23)
== END 2021-08-14 05:10 | disposition home or self-care (01) ==
LOC: JD.ED 04:07
DX: F41.9 Anxiety disorder, unspecified (principal); Z87.891 Personal history of nicotine dependence; Z88.0 Allergy status to penicillin; Z88.2 Allergy status to sulfonamides
CPT/HCPCS: 99283; A9270-GY

== ENCOUNTER 2021-10-08 15:12 | Emergency (ER) | payer MEDICAID ==
[2021-10-08 15:20] VITALS: BP 138/90; PULSE 64
== END 2021-10-08 15:54 | disposition home or self-care (01) ==
LOC: JD.ED 15:12
DX: K04.7 Periapical abscess without sinus (principal); K03.81 Cracked tooth; Z88.0 Allergy status to penicillin; Z88.2 Allergy status to sulfonamides; Z79.899 Other long term (current) drug therapy
CPT/HCPCS: 99283

== ENCOUNTER 2021-11-25 08:01 | Emergency (ER) | payer MEDICAID ==
[2021-11-25 08:13] VITALS: BP 132/71; PULSE 90
== END 2021-11-25 08:53 | disposition home or self-care (01) ==
LOC: JD.ED 08:01
DX: S02.5XXA Fracture of tooth (traumatic), initial encounter for closed fracture (principal); K04.7 Periapical abscess without sinus; Z88.0 Allergy status to penicillin; Z88.2 Allergy status to sulfonamides; W22.09XA Striking against other stationary object, initial encounter
CPT/HCPCS: 99282

== ENCOUNTER 2021-12-04 19:33 | Emergency (ER) | payer MEDICAID | END 2021-12-04 20:10 | LOC: JD.ED 19:33 | DX: Z53.21 Procedure and treatment not carried out due to patient leaving prior to being seen by health care provider (principal) ==

== ENCOUNTER 2021-12-10 16:56 | Emergency (ER) | payer MEDICAID ==
[2021-12-10 17:17] VITALS: BP 118/73; PULSE 77
== END 2021-12-10 20:07 | disposition home or self-care (01) ==
LOC: JD.ED 16:56
DX: S51.811A Laceration without foreign body of right forearm, initial encounter (principal); S51.812A Laceration without foreign body of left forearm, initial encounter; F31.9 Bipolar disorder, unspecified; Z88.0 Allergy status to penicillin; Z88.2 Allergy status to sulfonamides; Z79.899 Other long term (current) drug therapy; X78.9XXA Intentional self-harm by unspecified sharp object, initial encounter
CPT/HCPCS: 36415; 80053; 80143; 80179; 80306; 80307; 81025; 84443; 85007; 85027; 93005; 93010; 99283; 99284

== ENCOUNTER 2022-01-03 00:19 | Emergency (ER) | payer MEDICAID ==
[2022-01-03 00:55] VITALS: BP 132/86; PULSE 76
[2022-01-03] MEDS ORDERED: Lidocaine 1% with EPINEPHrine 1:100,000 10 ML MDV INJECT ONE (01:37)
[2022-01-03] MEDS ORDERED: Bupivacaine 0.5% 10 ML SDV INJECT ONE (01:37)
[2022-01-03] MEDS ORDERED: Penicillin V Potassium 500 MG Tab PO STA (01:38)
== END 2022-01-03 02:41 | disposition home or self-care (01) ==
LOC: JD.ED 00:19
DX: K08.89 Other specified disorders of teeth and supporting structures (principal); Z88.0 Allergy status to penicillin; Z88.2 Allergy status to sulfonamides; Z79.899 Other long term (current) drug therapy
CPT/HCPCS: 64400; 99282

== ENCOUNTER 2022-01-03 09:54 | Emergency (ER) | payer MEDICAID ==
[2022-01-03 10:16] VITALS: BP 132/88; PULSE 77
[2022-01-03] MEDS ORDERED: Lidocaine 4% Top Soln 50 ML Bottle MUCMEM ONE (10:40)
[2022-01-03] MEDS ORDERED: Lidocaine 1% 10 ML MDV INJECT ONE (10:40)
[2022-01-03] MEDS ORDERED: Ketorolac 30 MG/ML SDV IM ONE ×2 (10:40→10:52)
[2022-01-03] MEDS ORDERED: Bupivacaine 0.5% 10 ML SDV INJECT ONE (10:40)
[2022-01-03] MEDS ORDERED: Acetaminophen 325 MG Tab PO ONE (10:42)
== END 2022-01-03 14:13 | disposition home health service (06) ==
LOC: JD.ED 09:54
DX: M27.69 Other endosseous dental implant failure (principal); J45.909 Unspecified asthma, uncomplicated; K21.9 Gastro-esophageal reflux disease without esophagitis; Z88.0 Allergy status to penicillin; Z88.2 Allergy status to sulfonamides; Z79.899 Other long term (current) drug therapy
CPT/HCPCS: 64400; 96372; 99282; A9270; J1885; J3490

== ENCOUNTER 2022-03-21 12:57 | Emergency (ER) | payer MEDICAID ==
[2022-03-21 14:19] VITALS: BP 135/83; PULSE 74
== END 2022-03-21 14:08 | disposition home or self-care (01) ==
LOC: JD.ED 12:57
DX: K04.7 Periapical abscess without sinus (principal); Z88.0 Allergy status to penicillin; Z88.2 Allergy status to sulfonamides; Z79.899 Other long term (current) drug therapy
CPT/HCPCS: 99282

== ENCOUNTER 2022-07-20 14:18 | Emergency (ER) | payer MEDICAID ==
[2022-07-20] MEDS ORDERED: Sodium Chloride 0.9% 10 ML Syringe FLUSH PRN (15:11)
[2022-07-20] MEDS ORDERED: Ondansetron 4 MG/2 ML SDV IVPUSH ONE (15:11)
[2022-07-20] MEDS ORDERED: LORazepam 2 MG/ML SDV IVPUSH ONE (15:13)
[2022-07-20] MEDS ORDERED: Sodium Chloride 0.9% 1,000 ML IV SCH (15:15)
[2022-07-20 16:14] LABS: ESTIMATED GFR 102 mL/min (>60)
[2022-07-20 17:50] VITALS: BP 128/86; PULSE 60
== END 2022-07-20 18:18 | disposition home or self-care (01) ==
LOC: JD.ED 14:18
DX: R07.89 Other chest pain (principal); F41.9 Anxiety disorder, unspecified; J45.909 Unspecified asthma, uncomplicated; Z88.0 Allergy status to penicillin; Z88.5 Allergy status to narcotic agent; Z88.1 Allergy status to other antibiotic agents
CPT/HCPCS: 36415; 80053; 80143; 80164; 80179; 80306; 80307; 81001; 84484; 84703; 85025; 93005; 96361; 96374; 96375; 99285; J2060; J2405; J3490; J7030; 93010; 99284

== ENCOUNTER 2022-07-23 16:26 | Emergency (ER) | payer MEDICAID ==
[2022-07-23] MEDS ORDERED: LORazepam 2 MG/ML SDV IVPUSH ONE (17:08)
[2022-07-23 17:14] LABS: BASOPHILS ABSOLUTE AUTO 0.03 K/mm3 (0.01-0.08); BASOPHILS PERCENT AUTO 0.5 % (0.1-1.2); EOSINOPHILS ABSOLUTE AUTO 0.01 K/mm3 (0.04-0.36); EOSINOPHILS PERCENT AUTO 0.2 (0.7-5.8); HEMATOCRIT 34.2 % (34.1-44.9); HEMOGLOBIN 11.6 gm/dl (11.2-15.7); IMMATURE GRAN ABSOLUTE AUTO 0.01 K/mm3 (0.00-0.10); IMMATURE GRAN PERCENT AUTO 0.2 % (<=1.0); LYMPHOCYTES PERCENT AUTO 31.8 % (19.3-51.7); MEAN CORPUSCULAR HEMOGLOBIN 28.6 pg (25.6-32.2); MEAN CORPUSCULAR HGB CONC 33.9 g/dl (32.2-35.5); MEAN CORPUSCULAR VOLUME 84.2 fl (79.4-94.8); MEAN PLATELET VOLUME 9.4 fl (9.4-12.3); MONOCYTES ABSOLUTE AUTO 0.73 K/mm3 (0.24-0.36); MONOCYTES PERCENT AUTO 11.6 % (4.7-12.5); NEUTROPHILS PERCENT AUTO 55.7 % (34.0-71.1); PLATELET COUNT,PLT 280 K/mm3 (182-369); RED BLOOD CELL COUNT 4.06 M/mm3 (3.98-5.22); WHITE BLOOD CELL COUNT,WBC 6.28 K/mm3 (3.98-10.04)
[2022-07-23 17:31] LABS: BARBITURATE SCREEN,URINE NEGATIVE (CUTOFF=200); BENZODIAZEPINES SCREEN,URINE PRESUMPTIVE POSITIVE (CUTOFF=150); BUPRENORPHINE SCREEN,URINE NEGATIVE (CUTOFF=10); METHADONE SCREEN, URINE NEGATIVE (CUTOFF=200); METHAMPHETAMINES SCREEN, URINE NEGATIVE (CUTOFF=500); OXYCODONE SCREEN,URINE NEGATIVE (CUT0FF=100); PROPOXYPHENE SCREEN,URINE NEGATIVE (CUTOFF=300); THC SCREEN,URINE 20 NG/ML PRESUMPTIVE POSITIVE (CUTOFF=50)
[2022-07-23 17:32] LABS: AMPHETAMINES SCREEN, URINE NEGATIVE (CUTOFF=500)
[2022-07-23 17:39] LABS: A/G RATIO 1.1 (1-2); ALBUMIN 3.6 g/dl (3.4-5.0); ANION GAP 12.5 (5-15); BILIRUBIN TOTAL 0.2 mg/dL (0.2-1.0); BUN/CREATININE RATIO 14.4 (14-18); CALCIUM 8.4 mg/dL (8.5-10.1); CREATININE 0.9 mg/dL (0.55-1.02); EST CRCL DRUG DOSING (CG) 78.93 mL/min; POTASSIUM,K 3.5 mEq/L (3.5-5.1); PROTEIN TOTAL,TP 6.9 g/dl (6.4-8.2)
[2022-07-23] MEDS ORDERED: Lidocaine 1% 20 ML MDV INJECT ONE (18:13)
[2022-07-23] MEDS ORDERED: Diphtheria,Pertussis(Acell),Tetanus Vaccine 0.5 ML Syringe IM ONE (18:40)
[2022-07-23] MEDS ORDERED: OLANZapine 5 MG Tab PO ONE (21:07)
[2022-07-24 08:47] VITALS: BP 107/68
[2022-07-24] MEDS ORDERED: Divalproex Sodium Delayed-Release 250 MG Tab.CR PO ONE ×2 (09:45→09:52)
[2022-07-24] MEDS ORDERED: Venlafaxine 37.5 MG Cap.ER PO ONE (09:52)
[2022-07-24] MEDS ORDERED: ALPRAZolam 1 MG Tab PO STA (10:11)
[2022-07-24] MEDS ORDERED: DIVALPROEX SODIUM 250 MG PO ONE (10:15)
[2022-07-24] MEDS ORDERED: VENLAFAXINE 75 MG PO ONE (10:15)
[2022-07-24 10:34] VITALS: PULSE 58
[2022-07-25] MEDS ORDERED: Venlafaxine 37.5 MG Cap.ER PO SCH (09:00)
== END 2022-07-24 10:32 ==
LOC: JD.ED 16:26 → EEVIPCON 16:26 → JD.ED 07-24 10:32
DX: S51.811A Laceration without foreign body of right forearm, initial encounter (principal); S51.802A Unspecified open wound of left forearm, initial encounter; J45.909 Unspecified asthma, uncomplicated; F17.210 Nicotine dependence, cigarettes, uncomplicated; Z23 Encounter for immunization; Z88.5 Allergy status to narcotic agent; Z88.0 Allergy status to penicillin; Z88.2 Allergy status to sulfonamides; Z79.899 Other long term (current) drug therapy; Z20.822 Contact with and (suspected) exposure to COVID-19; X78.8XXA Intentional self-harm by other sharp object, initial encounter
CPT/HCPCS: 12007; 36415; 80053; 80143; 80179; 80306; 80307; 81025; 85025; 87635; 90471; 90715; 96374; 99285; A9270; J2060; J3490; U0002

== ENCOUNTER 2022-08-01 09:54 | Emergency (ER) | payer MEDICAID ==
[2022-08-01] MEDS ORDERED: diphenhydrAMINE 50 MG/ML SDV IM ONE (10:11)
[2022-08-01] MEDS ORDERED: Haloperidol Lactate 5 MG/ML SDV IM ONE (10:11)
[2022-08-01] MEDS ORDERED: LORazepam 2 MG/ML SDV IM ONE (10:11)
[2022-08-01 10:49] LABS: BASOPHILS ABSOLUTE AUTO 0.06 K/mm3 (0.01-0.08); BASOPHILS PERCENT AUTO 0.7 % (0.1-1.2); EOSINOPHILS ABSOLUTE AUTO 0.06 K/mm3 (0.04-0.36); EOSINOPHILS PERCENT AUTO 0.7 (0.7-5.8); HEMATOCRIT 37.6 % (34.1-44.9); HEMOGLOBIN 12.5 gm/dl (11.2-15.7); IMMATURE GRAN ABSOLUTE AUTO 0.01 K/mm3 (0.00-0.10); IMMATURE GRAN PERCENT AUTO 0.1 % (<=1.0); LYMPHOCYTES ABSOLUTE AUTO 2.16 K/mm3 (1.18-3.74); LYMPHOCYTES PERCENT AUTO 25.1 % (19.3-51.7); MEAN CORPUSCULAR HEMOGLOBIN 29.1 pg (25.6-32.2); MEAN CORPUSCULAR HGB CONC 33.2 g/dl (32.2-35.5); MEAN PLATELET VOLUME 10.1 fl (9.4-12.3); MONOCYTES ABSOLUTE AUTO 0.78 K/mm3 (0.24-0.36); MONOCYTES PERCENT AUTO 9.1 % (4.7-12.5); NEUTROPHILS ABSOLUTE AUTO 5.54 K/mm3 (1.56-6.13); NEUTROPHILS PERCENT AUTO 64.3 % (34.0-71.1); PLATELET COUNT,PLT 337 K/mm3 (182-369); RED BLOOD CELL COUNT 4.29 M/mm3 (3.98-5.22); WHITE BLOOD CELL COUNT,WBC 8.61 K/mm3 (3.98-10.04)
[2022-08-01 10:50] LABS: APPEARANCE,URINE CLEAR (Clear); BILIRUBIN,URINE 1+ (Negative); COLOR,URINE YELLOW (Yellow); GLUCOSE,URINE NEGATIVE (Negative); KETONES,URINE 2+ (Negative); LEUKOCYTE ESTERASE,URINE TRACE (Negative); NITRITE,URINE NEGATIVE (Negative); OCCULT BLOOD,URINE NEGATIVE (Negative); PROTEIN,URINE 2+ (Negative)
[2022-08-01 10:50] LABS: MEAN CORPUSCULAR VOLUME 87.6 fl (79.4-94.8)
[2022-08-01 11:02] LABS: BARBITURATE SCREEN,URINE NEGATIVE (CUTOFF=200); BENZODIAZEPINES SCREEN,URINE PRESUMPTIVE POSITIVE (CUTOFF=150); BUPRENORPHINE SCREEN,URINE NEGATIVE (CUTOFF=10); METHADONE SCREEN, URINE NEGATIVE (CUTOFF=200); METHAMPHETAMINES SCREEN, URINE NEGATIVE (CUTOFF=500); OXYCODONE SCREEN,URINE NEGATIVE (CUT0FF=100); PROPOXYPHENE SCREEN,URINE NEGATIVE (CUTOFF=300); THC SCREEN,URINE 20 NG/ML PRESUMPTIVE POSITIVE (CUTOFF=50)
[2022-08-01 11:16] LABS: A/G RATIO 1.2 (1-2); ALANINE AMINOTRANSFERASE,ALT 25 U/L (14-59); ALBUMIN 4.2 g/dl (3.4-5.0); ALKALINE PHOSPHATASE 43 U/L (46-116); ANION GAP 13.7 (5-15); ASPARTATE AMNIOTRANSFERASE,AST 22 U/L (15-37); BILIRUBIN TOTAL 0.6 mg/dL (0.2-1.0); BLOOD UREA NITROGEN,BUN 12 mg/dL (7-18); BUN/CREATININE RATIO 13.3 (14-18); CALCIUM 8.9 mg/dL (8.5-10.1); CARBON DIOXIDE,CO2 27 mEq/L (21-32); CHLORIDE,CL 103 mEq/L (98-107); CREATININE 0.9 mg/dL (0.55-1.02); ESTIMATED GFR 88 mL/min (>60); GLUCOSE RANDOM 84 mg/dL (70-99); POTASSIUM,K 3.7 mEq/L (3.5-5.1); PROTEIN TOTAL,TP 7.7 g/dl (6.4-8.2); SODIUM,NA 140 mEq/L (136-145); TSH 0.635 uIU/mL (0.358-3.74); VALPROIC ACID 66.5 ug/mL (50.0-100.0)
[2022-08-01 11:20] LABS: AMPHETAMINES SCREEN, URINE NEGATIVE (CUTOFF=500)
[2022-08-01 11:21] LABS: BACTERIA,URINE MANY /hpf (FEW); MUCUS,URINE MANY /hpf (FEW); SQUAMOUS EPITHELIAL CELLS,UR 40-50 /hpf (0-5); WBC,URINE 20-30 /hpf (0-5)
[2022-08-01] MEDS ORDERED: Lidocaine 1% 10 ML MDV INJECT ONE (13:45)
[2022-08-01 13:56] LABS: APPEARANCE,URINE CLEAR (Clear); BILIRUBIN,URINE 1+ (Negative); COLOR,URINE YELLOW (Yellow); GLUCOSE,URINE NEGATIVE (Negative); KETONES,URINE 2+ (Negative); LEUKOCYTE ESTERASE,URINE NEGATIVE (Negative); NITRITE,URINE NEGATIVE (Negative); OCCULT BLOOD,URINE NEGATIVE (Negative); PROTEIN,URINE 1+ (Negative)
[2022-08-01 14:18] LABS: BACTERIA,URINE MODERATE /hpf (FEW); RBC,URINE 0-5 /hpf (0-5); WBC,URINE 0-5 /hpf (0-5)
[2022-08-01 14:19] LABS: MUCUS,URINE MANY /hpf (FEW)
[2022-08-01 14:53] VITALS: BP 111/71; PULSE 96
== END 2022-08-01 14:53 ==
LOC: JD.ED 09:54
DX: R45.851 Suicidal ideations (principal); J45.909 Unspecified asthma, uncomplicated; K21.9 Gastro-esophageal reflux disease without esophagitis; Z88.0 Allergy status to penicillin; Z88.5 Allergy status to narcotic agent
CPT/HCPCS: 36415; 80053; 80164; 80306; 80307; 81001; 81025; 84443; 85025; 87086; 96372; 99285; J1200; J1630; J2060

== ENCOUNTER 2022-08-03 16:32 | Emergency (ER) | payer MEDICAID ==
[2022-08-03 17:36] LABS: BASOPHILS ABSOLUTE AUTO 0.03 K/mm3 (0.01-0.08); BASOPHILS PERCENT AUTO 0.3 % (0.1-1.2); EOSINOPHILS PERCENT AUTO 0 (0.7-5.8); HEMATOCRIT 34.5 % (34.1-44.9); HEMOGLOBIN 11.5 gm/dl (11.2-15.7); IMMATURE GRAN ABSOLUTE AUTO 0.01 K/mm3 (0.00-0.10); IMMATURE GRAN PERCENT AUTO 0.1 % (<=1.0); LYMPHOCYTES ABSOLUTE AUTO 2.01 K/mm3 (1.18-3.74); MEAN CORPUSCULAR HEMOGLOBIN 28.8 pg (25.6-32.2); MEAN CORPUSCULAR HGB CONC 33.3 g/dl (32.2-35.5); MEAN CORPUSCULAR VOLUME 86.5 fl (79.4-94.8); MONOCYTES ABSOLUTE AUTO 0.89 K/mm3 (0.24-0.36); MONOCYTES PERCENT AUTO 8.4 % (4.7-12.5); NEUTROPHILS ABSOLUTE AUTO 7.62 K/mm3 (1.56-6.13); NEUTROPHILS PERCENT AUTO 72.2 % (34.0-71.1); PLATELET COUNT,PLT 274 K/mm3 (182-369); RED BLOOD CELL COUNT 3.99 M/mm3 (3.98-5.22); WHITE BLOOD CELL COUNT,WBC 10.56 K/mm3 (3.98-10.04)
[2022-08-03] MEDS ORDERED: LORazepam 2 MG/ML SDV IM ONE (17:52)
[2022-08-03 18:23] LABS: A/G RATIO 1.1 (1-2); ALANINE AMINOTRANSFERASE,ALT 27 U/L (14-59); ALBUMIN 3.8 g/dl (3.4-5.0); ALKALINE PHOSPHATASE 39 U/L (46-116); ANION GAP 15.2 (5-15); ASPARTATE AMNIOTRANSFERASE,AST 33 U/L (15-37); BILIRUBIN TOTAL 0.4 mg/dL (0.2-1.0); BLOOD UREA NITROGEN,BUN 18 mg/dL (7-18); BUN/CREATININE RATIO 25.7 (14-18); CALCIUM 8.7 mg/dL (8.5-10.1); CARBON DIOXIDE,CO2 25 mEq/L (21-32); CHLORIDE,CL 104 mEq/L (98-107); CREATININE 0.7 mg/dL (0.55-1.02); ESTIMATED GFR 119 mL/min (>60); GLUCOSE RANDOM 79 mg/dL (70-99); POTASSIUM,K 4.2 mEq/L (3.5-5.1); PROTEIN TOTAL,TP 7.2 g/dl (6.4-8.2); SODIUM,NA 140 mEq/L (136-145); TSH 0.407 uIU/mL (0.358-3.74)
[2022-08-03 18:26] LABS: ACETAMINOPHEN 0 ug/mL (10-30)
[2022-08-03] MEDS ORDERED: Haloperidol 5 MG Tab PO ONE (20:50)
[2022-08-03] MEDS ORDERED: Acetaminophen 325 MG Tab PO ONE (20:52)
[2022-08-03] MEDS ORDERED: rOPINIRole 0.25 MG Tab PO ONE (21:39)
[2022-08-03] MEDS ORDERED: LORazepam 1 MG Tab PO ONE (21:39)
[2022-08-03] MEDS ORDERED: diphenhydrAMINE 25 MG Cap PO ONE (21:40)
[2022-08-03] MEDS ORDERED: QUEtiapine 100 MG Tab PO ONE (21:40)
[2022-08-03 23:25] VITALS: BP 112/57; PULSE 69
== END 2022-08-03 23:13 ==
LOC: JD.ED 16:32
DX: F32.89 Other specified depressive episodes (principal); S01.01XA Laceration without foreign body of scalp, initial encounter; J45.909 Unspecified asthma, uncomplicated; K21.9 Gastro-esophageal reflux disease without esophagitis; Z88.0 Allergy status to penicillin; Z88.5 Allergy status to narcotic agent; Z88.8 Allergy status to other drugs, medicaments and biological substances; X79.XXXA Intentional self-harm by blunt object, initial encounter
CPT/HCPCS: 70450; 80053; 80143; 80179; 80307; 84443; 84702; 85025; 93005; 96372; 99285; A9270; J2060; 36415; 93010; 99284

== ENCOUNTER 2022-08-05 22:23 | Emergency (ER) | payer MEDICAID ==
[2022-08-05 22:41] VITALS: BP 105/73; PULSE 77
[2022-08-06] MEDS ORDERED: Acetaminophen 325 MG Tab PO ONE (00:20)
[2022-08-06] MEDS ORDERED: LORazepam 1 MG Tab PO ONE (00:21)
== END 2022-08-06 02:15 | disposition home or self-care (01) ==
LOC: JD.ED 22:23
DX: S00.83XA Contusion of other part of head, initial encounter (principal); S60.222A Contusion of left hand, initial encounter; S60.221A Contusion of right hand, initial encounter; J45.909 Unspecified asthma, uncomplicated; Z79.899 Other long term (current) drug therapy; Z88.5 Allergy status to narcotic agent; Z88.0 Allergy status to penicillin; Z88.8 Allergy status to other drugs, medicaments and biological substances; Z88.2 Allergy status to sulfonamides; W22.01XA Walked into wall, initial encounter
CPT/HCPCS: 70450; 70450-26; 731302650; 73130-50; 99285; A9270-GY

== ENCOUNTER 2022-12-05 16:58 | Emergency (ER) | payer MEDICAID ==
[2022-12-05] MEDS ORDERED: Ketorolac 60 MG/2 ML SDV IM ONE (17:38)
[2022-12-05] MEDS ORDERED: Orphenadrine 100 MG Tab.ER PO STA (17:38)
[2022-12-05 17:48] LABS: BASOPHILS PERCENT AUTO 0.2 % (0.0-1.0); EOSINOPHILS ABSOLUTE AUTO 0.1 K/mm3 (0.0-0.4); EOSINOPHILS PERCENT AUTO 0.7 % (0.0-6.0); HEMATOCRIT 32.7 % (37.0-47.0); HEMOGLOBIN 10.7 gm/dl (12.0-16.0); IMMATURE GRAN ABSOLUTE AUTO 0.01 K/mm3 (0.00-0.05); IMMATURE GRAN PERCENT AUTO 0.1 % (0.0-0.4); LYMPHOCYTES ABSOLUTE AUTO 2.9 K/mm3 (1.0-4.8); LYMPHOCYTES PERCENT AUTO 36.1 % (24.0-44.0); MEAN CORPUSCULAR HEMOGLOBIN 28.2 pg (28.0-32.0); MEAN CORPUSCULAR HGB CONC 32.7 g/dl (32.0-36.0); MEAN CORPUSCULAR VOLUME 86.3 fl (83.0-99.0); MEAN PLATELET VOLUME 9.7 fl (9.4-12.3); MONOCYTES ABSOLUTE AUTO 0.6 K/mm3 (0.0-0.8); MONOCYTES PERCENT AUTO 7.1 % (0.0-8.0); NEUTROPHILS ABSOLUTE AUTO 4.5 K/mm3 (1.8-7.7); NEUTROPHILS PERCENT AUTO 55.8 % (41.0-71.0); PLATELET COUNT,PLT 233 K/mm3 (150-400); RED BLOOD CELL COUNT 3.79 M/mm3 (4.10-5.30); WHITE BLOOD CELL COUNT,WBC 8.15 K/mm3 (3.9-11.3)
[2022-12-05 18:10] LABS: A/G RATIO 1.1 (1-2); ALBUMIN 3.4 g/dl (3.4-5.0); ANION GAP 15.5 (5-15); BILIRUBIN TOTAL 0.2 mg/dL (0.2-1.0); BUN/CREATININE RATIO 12.9 (14-18); CREATININE 0.7 mg/dL (0.55-1.02); EST CRCL DRUG DOSING (CG) 101.48 mL/min; MAGNESIUM 1.6 mg/dL (1.8-2.4); POTASSIUM,K 4.5 mEq/L (3.5-5.1); PROTEIN TOTAL,TP 6.6 g/dl (6.4-8.2)
[2022-12-05 19:38] VITALS: BP 116/76; PULSE 65
== END 2022-12-05 19:33 | disposition home or self-care (01) ==
LOC: JD.ED 16:58
DX: G56.03 Carpal tunnel syndrome, bilateral upper limbs (principal); M54.2 Cervicalgia; J45.909 Unspecified asthma, uncomplicated; K21.9 Gastro-esophageal reflux disease without esophagitis; F17.210 Nicotine dependence, cigarettes, uncomplicated; Z88.0 Allergy status to penicillin; Z88.2 Allergy status to sulfonamides; Z88.5 Allergy status to narcotic agent
CPT/HCPCS: 36415; 71045; 80053; 83735; 85025; 96372; 99283; A9270; J1885

== ENCOUNTER 2023-03-10 03:53 | Emergency (ER) | payer MEDICAID ==
[2023-03-10] MEDS ORDERED: Sodium Chloride 0.9% 10 ML Syringe FLUSH PRN (04:18)
[2023-03-10] MEDS ORDERED: LORazepam 0.5 MG Tab PO ONE (04:57)
[2023-03-10] MEDS ORDERED: Ondansetron 4 MG/2 ML SDV IVPUSH ONE (04:57)
[2023-03-10 05:07] LABS: INR 1.07; PROTHROMBIN TIME 11.4 SECONDS (9.7-12.0)
[2023-03-10 05:14] LABS: A/G RATIO 1.1 (1-2); ALBUMIN 4.2 g/dl (3.4-5.0); ANION GAP 17.2 (5-15); BILIRUBIN TOTAL 1.2 mg/dL (0.2-1.0); BUN/CREATININE RATIO 21.1 (14-18); CALCIUM 9.3 mg/dL (8.5-10.1); CREATININE 0.9 mg/dL (0.55-1.02); EST CRCL DRUG DOSING (CG) 78.93 mL/min; MAGNESIUM 1.6 mg/dL (1.8-2.4); POTASSIUM,K 3.2 mEq/L (3.5-5.1); PROTEIN TOTAL,TP 7.9 g/dl (6.4-8.2)
[2023-03-10 05:23] LABS: D-DIMER QUANTITATIVE < 0.19 mg/L (0.19-0.50)
[2023-03-10] MEDS ORDERED: Potassium Chloride 20 MEQ Tab.ER PO ONE (05:28)
[2023-03-10] MEDS ORDERED: Magnesium Oxide 400 MG Tab PO ONE (05:28)
[2023-03-10 05:33] LABS: BASOPHILS PERCENT AUTO 0.2 % (0.0-1.0); EOSINOPHILS PERCENT AUTO 0.1 % (0.0-6.0); HEMATOCRIT 32.7 % (37.0-47.0); HEMOGLOBIN 11.5 gm/dl (12.0-16.0); IMMATURE GRAN ABSOLUTE AUTO 0.05 K/mm3 (0.00-0.05); IMMATURE GRAN PERCENT AUTO 0.4 % (0.0-0.4); LYMPHOCYTES ABSOLUTE AUTO 2.6 K/mm3 (1.0-4.8); LYMPHOCYTES PERCENT AUTO 20.6 % (24.0-44.0); MEAN CORPUSCULAR HGB CONC 35.2 g/dl (32.0-36.0); MEAN CORPUSCULAR VOLUME 82.6 fl (83.0-99.0); MEAN PLATELET VOLUME 9.7 fl (9.4-12.3); MONOCYTES ABSOLUTE AUTO 1.2 K/mm3 (0.0-0.8); NEUTROPHILS ABSOLUTE AUTO 8.9 K/mm3 (1.8-7.7); NEUTROPHILS PERCENT AUTO 69.7 % (41.0-71.0); PLATELET COUNT,PLT 275 K/mm3 (150-400); RED BLOOD CELL COUNT 3.96 M/mm3 (4.10-5.30); WHITE BLOOD CELL COUNT,WBC 12.76 K/mm3 (3.9-11.3)
[2023-03-10 05:59] VITALS: BP 134/76; PULSE 91
== END 2023-03-10 05:58 | disposition home or self-care (01) ==
LOC: JD.ED 03:53
DX: T20.15XA Burn of first degree of scalp [any part], initial encounter (principal); R00.2 Palpitations; E87.6 Hypokalemia; E83.42 Hypomagnesemia; D64.9 Anemia, unspecified; R11.0 Nausea; F41.9 Anxiety disorder, unspecified; Z79.899 Other long term (current) drug therapy; Z88.0 Allergy status to penicillin; Z88.2 Allergy status to sulfonamides; Z88.5 Allergy status to narcotic agent; Z88.6 Allergy status to analgesic agent
CPT/HCPCS: 16000; 36415; 71045; 80053; 83735; 84484; 84703; 85025; 85379; 85610; 93005; 96374; 99284; A9270; J2405; J3490; 93010

== ENCOUNTER 2023-09-04 10:57 | Emergency (ER) | payer MEDICAID ==
[2023-09-04] MEDS: Ketorolac 60 MG/2 ML SDV IM ONE (11:36)
[2023-09-04] MEDS: Amoxicillin/Clavulanate K 875-125 MG Tab PO ONE (11:38)
[2023-09-04 11:54] VITALS: BP 111/83; PULSE 64
== END 2023-09-04 11:50 | disposition home or self-care (01) ==
LOC: JD.ED 10:57
DX: K04.7 Periapical abscess without sinus (principal); J45.909 Unspecified asthma, uncomplicated; Z79.899 Other long term (current) drug therapy; K02.9 Dental caries, unspecified; Z88.5 Allergy status to narcotic agent; Z88.6 Allergy status to analgesic agent; Z88.2 Allergy status to sulfonamides
CPT/HCPCS: 96372; 99283; A9270; J1885

== ENCOUNTER 2024-12-18 02:37 | Emergency (ER) | payer SELFPAY ==
[2024-12-18 03:24] LABS: BASOPHILS ABSOLUTE AUTO 0.0 K/mm3 (0.0-0.2); BASOPHILS PERCENT AUTO 0.3 % (0.0-1.0); EOSINOPHILS ABSOLUTE AUTO 0.0 K/mm3 (0.0-0.4); EOSINOPHILS PERCENT AUTO 0.3 % (0.0-6.0); IMMATURE GRAN ABSOLUTE AUTO 0.03 K/mm3 (0.00-0.05); IMMATURE GRAN PERCENT AUTO 0.2 % (0.0-0.4); LYMPHOCYTES ABSOLUTE AUTO 3.1 K/mm3 (1.0-4.8); LYMPHOCYTES PERCENT AUTO 24.7 % (24.0-44.0); MEAN PLATELET VOLUME 10.0 fl (9.4-12.3); MONOCYTES ABSOLUTE AUTO 0.9 K/mm3 (0.0-0.8); MONOCYTES PERCENT AUTO 7.2 % (0.0-8.0); NEUTROPHILS ABSOLUTE AUTO 8.3 K/mm3 (1.8-7.7); NEUTROPHILS PERCENT AUTO 67.3 % (41.0-71.0); NRBC ABSOLUTE 0.00 (0.00-0.02); NRBC PERCENT 0.0 % (0.0-0.2); PLATELET COUNT,PLT 269 K/mm3 (150-400); RED BLOOD CELL COUNT 4.06 M/mm3 (4.10-5.30); WHITE BLOOD CELL COUNT,WBC 12.38 K/mm3 (3.9-11.3)
[2024-12-18 03:25] LABS: APPEARANCE,URINE TURBID (Clear); GLUCOSE,URINE TRACE (Negative); OCCULT BLOOD,URINE 3+ (Negative)
[2024-12-18 03:35] LABS: BUPRENORPHINE SCREEN,URINE NEGATIVE (CUTOFF=10); METHADONE SCREEN, URINE NEGATIVE (CUTOFF=200); METHAMPHETAMINES SCREEN, URINE PRESUMPTIVE POSITIVE (CUTOFF=500); OXYCODONE SCREEN,URINE NEGATIVE (CUT0FF=100); THC SCREEN,URINE 20 NG/ML NEGATIVE (CUTOFF=50)
[2024-12-18 03:37] LABS: AMPHETAMINES SCREEN, URINE PRESUMPTIVE POSITIVE (CUTOFF=500)
[2024-12-18] MEDS: cefTRIAXone 1 GM in Water For Injection, Sterile 10 ML IVPUSH ONE (03:47)
[2024-12-18 03:50] LABS: LACTIC ACID 1.5 mmol/L (0.4-2.0)
[2024-12-18 03:56] LABS: A/G RATIO 1.2 (1-2); ALANINE AMINOTRANSFERASE,ALT 20.0 U/L (14-59); ASPARTATE AMNIOTRANSFERASE,AST 17.0 U/L (15-37); BILIRUBIN TOTAL 0.7 mg/dL (0.2-1.0); BLOOD UREA NITROGEN,BUN 4.0 mg/dL (7-18); CARBON DIOXIDE,CO2 27.0 mEq/L (21-32); CHLORIDE,CL 105.0 mEq/L (98-107); CREATININE 0.7 mg/dL (0.55-1.02); EST CRCL DRUG DOSING (CG) 99.63 mL/min; ESTIMATED GFR 118.0 mL/min (>60); ETHANOL BLOOD MEDICAL 0.01 gm% (0.00); GLUCOSE RANDOM 87.0 mg/dL (70-99); POTASSIUM,K 3.1 mEq/L (3.5-5.1); PROTEIN TOTAL,TP 6.9 g/dl (6.4-8.2); SODIUM,NA 142.0 mEq/L (136-145); TSH 1.914 uIU/mL (0.358-3.74)
[2024-12-18] MEDS: Potassium Bicarbonate/Cit Ac 20 MEQ Effervescent Tab PO ONE (04:25)
[2024-12-18] MEDS: Magnesium Sulfat/D5W 1GM/100ML 1 GM in Premix Bag 1 BAG IV ONE (04:25)
[2024-12-18 05:20] LABS: C. TRACHOMATIS BY PCR NOT DETECTED; N. GONORRHOEAE BY PCR NOT DETECTED
[2024-12-18 06:09] LABS: A/G RATIO 1.2 (1-2); ALANINE AMINOTRANSFERASE,ALT 16.0 U/L (14-59); ASPARTATE AMNIOTRANSFERASE,AST 12.0 U/L (15-37); BILIRUBIN TOTAL 0.5 mg/dL (0.2-1.0); BLOOD UREA NITROGEN,BUN 5.0 mg/dL (7-18); CARBON DIOXIDE,CO2 28.0 mEq/L (21-32); CHLORIDE,CL 106.0 mEq/L (98-107); CREATININE 0.7 mg/dL (0.55-1.02); EST CRCL DRUG DOSING (CG) 99.63 mL/min; ESTIMATED GFR 118.0 mL/min (>60); GLUCOSE RANDOM 106.0 mg/dL (70-99); POTASSIUM,K 3.3 mEq/L (3.5-5.1); PROTEIN TOTAL,TP 6.0 g/dl (6.4-8.2); SODIUM,NA 142.0 mEq/L (136-145)
[2024-12-18 10:11] VITALS: BP 105/66; PULSE 70
== END 2024-12-18 10:35 ==
LOC: JD.ED 02:37 → EEVIPCON 02:37 → JD.ED 10:35
DX: R45.851 Suicidal ideations (principal); T74.11XA Adult physical abuse, confirmed, initial encounter; J45.909 Unspecified asthma, uncomplicated; Z73.5 Social role conflict, not elsewhere classified; Z88.5 Allergy status to narcotic agent; Z88.8 Allergy status to other drugs, medicaments and biological substances; Z79.899 Other long term (current) drug therapy
CPT/HCPCS: 36415; 71045; 80053; 80306; 80307; 81001; 83605; 83735; 84443; 84703; 85025; 87086; 87088; 87186; 87491; 87591; 93005; 96361; 96365; 96375; 99285; A9270; J0696; J3475; J7030; 93010